=== PATIENT | male | born 1950 | race African-American/Black ===

== ENCOUNTER 2017-04-21 17:10 | Inpatient (IN) | payer OTHER ==
[2017-04-21] MEDS ORDERED: SODIUM CHLORIDE 0.9% 500 ML INFUS.BAG IV ONE (19:19)
[2017-04-21] MEDS ORDERED: FAMOTIDINE 20 MG/50 ML IVPB 50 ML IVPB ONE ×2 (19:19→20:16)
[2017-04-21] MEDS ORDERED: ACETAMINOPHEN 1000 MG/100 ML VIAL (NON FORMULARY) IVPB ONE (19:19)
--- NOTE | 2017-04-21 19:21 | PDOC ---
History of Present Illness - General History Source: Patient Exam Limitations: No Limitations - History of Present Illness Initial Comments: 04/21/17 19:22 The patient is a 67-year-old male, with a significant past medical history of hypertension, hyperlipidemia, hypothyroidism, constipation, and diabetes, who presents to the ED with one week of fever, nausea, and vomiting. The patient states that he visited his PCP today and was found to be dehydrated and had a fever. The pt was sent to the ED for further evaluation. He reports vomiting multiple times in the last few days but denies noting any blood. The pt denies any diarrhea or changes in his bowel movements (pt does taking medication for constipation). He also reports having diffuse abdominal pain and generalized weakness. He denies any body aches. He denies any chest pain or shortness of breath. He denies any recent sick contacts or recent travel. PCP: Dr. Kenny Surgical Hx: umbilical hernia repair. Social Hx: He denies any tobacco, alcohol, or drug use Allergies: None <Frank Moran - Last Filed: 04/21/17 19:51> <Brenna Ibarra - Last Filed: 04/22/17 02:06> - General Chief Complaint: Nausea/Vomiting Stated Complaint: DEHYDRATION Time Seen by Provider: 04/21/17 19:13 Past History <Frank Moran - Last Filed: 04/21/17 19:51> - Past Medical History HTN: Yes Hypercholesterolemia: Yes Thyroid Disease: Yes - Psycho/Social/Smoking Cessation Hx Anxiety: No Suicidal Ideation: No Smoking History: Never smoked Have you smoked in the past 12 months: No Information on smoking cessation initiated: No Hx Alcohol Use: No Drug/Substance Use Hx: No Substance Use Type: None <Brenna Ibarra - Last Filed: 04/22/17 02:06> - Past Medical History Allergies/Adverse Reactions: Allergies Allergy/AdvReac Type Severity Reaction Status Date / Time No Known Allergies Allergy Verified 04/21/17 18:45 Home Medications: Ambulatory Orders Amlodipine Besylate 10 mg PO DAILY 04/21/17 Levothyroxine Sodium [Synthroid] 0 mcg PO DAILY 04/21/17 Linaclotide [Linzess] 72 mcg PO DAILY 04/21/17 Simvastatin [Zocor] 10 mg PO HS 04/21/17 Review of Systems - Review of Systems Able to Perform ROS?: Yes Comments:: 04/21/17 19:34 GENERAL/CONSTITUTIONAL: (+)fever, generalized weakness, loss of appetite. No chills. HEAD, EYES, EARS, NOSE AND THROAT: No change in vision. No ear pain or discharge. No sore throat. CARDIOVASCULAR: No chest pain or shortness of breath. RESPIRATORY: No cough, wheezing, or hemoptysis. GASTROINTESTINAL:(+)abdominal pain, abdominal distension, vomiting, nausea. No diarrhea or constipation. GENITOURINARY: No dysuria, frequency, or change in urination. MUSCULOSKELETAL: No joint or muscle swelling or pain. No neck or back pain. SKIN: No rash NEUROLOGIC: No headache, vertigo, loss of consciousness, or change in strength/ sensation. ENDOCRINE: No increased thirst. No abnormal weight change. HEMATOLOGIC/LYMPHATIC: No anemia, easy bleeding, or history of blood clots. ALLERGIC/IMMUNOLOGIC: No hives or skin allergy. <Frank Moran - Last Filed: 04/21/17 19:51> *Physical Exam - Vital Signs Last Vital Signs Temp Pulse Resp BP Pulse Ox 98.7 F 108 H 18 123/77 95 04/21/17 18:59 04/21/17 18:59 04/21/17 18:59 04/21/17 18:59 04/21/17 18:59 - Physical Exam Comments: 04/21/17 19:45 GENERAL: Awake, alert, and fully oriented, in no acute distress. (+)Pt feels warm to touch. HEAD: No signs of trauma EYES: PERRLA, EOMI, sclera anicteric, conjunctiva clear ENT: (+)White tongue. Auricles normal inspection, hearing grossly normal, nares patent, oropharynx clear without exudates. Moist mucosa NECK: Normal ROM, supple, no lymphadenopathy, JVD, or masses LUNGS: (+)Decreased breathe sounds left lower long. No wheezes, and no crackles HEART: (+)Tachycardia. Normal S1 and S2, no murmurs, rubs or gallops ABDOMEN: (+)Tympanitic, rebound, abdominal distension. Soft, nontender, normoactive bowel sounds. No guarding. No masses EXTREMITIES: Normal range of motion, no edema. No clubbing or cyanosis. No cords, erythema, or tenderness NEUROLOGICAL: Cranial nerves II through XII grossly intact. SKIN: Warm, Dry, normal turgor, no rashes or lesions noted. <Frank Moran - Last Filed: 04/21/17 19:51> - Vital Signs Last Vital Signs Temp Pulse Resp BP Pulse Ox 98.7 F 108 H 18 123/77 95 04/21/17 18:59 04/21/17 18:59 04/21/17 18:59 04/21/17 18:59 04/21/17 18:59 <Brenna Ibarra - Last Filed: 04/22/17 02:06> ED Treatment Course - LABORATORY CBC & Chemistry Diagram: 04/21/17 20:00 04/21/17 20:00 - RADIOLOGY Radiology Studies Ordered: Category Date Time Status ABDOMEN & PELVIS CT W/O CONTR [CT] Stat CT Scan 04/21/17 19:18 Ordered CHEST PA & LAT [RAD] Stat Radiology 04/21/17 19:20 Ordered <Brenna Ibarra - Last Filed: 04/22/17 02:06> Medical Decision Making - Medical Decision Making 04/22/17 01:55 Pt comes with abdominal pain x 7 days and fever and chills at home. He went to PMD today who sent him to the ER. Pt has pancreatitis as per elevated lipase of 940s. CT scan reveals thickened jejunum, consistent with celiac sprue. Pt has been unable to tolerate PO at home. He has a history of constipation and is on linzess. Pt will be admitted to his PMD's partner Dr. Klein, who is aware of the patient. Pt will require GI consult while he is admitted. 04/22/17 02:05 Sono result is pending <Brenna Ibarra - Last Filed: 04/22/17 02:06> *DC/Admit/Observation/Transfer - Attestations Scribe Attestion: 04/21/17 19:49 Documentation prepared by Frank Moran, acting as medical dir for Brenna Ibarra MD. <Frank Moran - Last Filed: 04/21/17 19:51> - Discharge Dispostion Admit: Yes <Brenna Ibarra - Last Filed: 04/22/17 02:06> Diagnosis at time of Disposition: Pancreatitis, Regional enteritis of jejunum, Renal insufficiency, mild - Discharge Dispostion Condition at time of disposition: Guarded - Referrals Referrals: Theresa Kenny MD [Primary Care Provider] -
[2017-04-21] MEDS ORDERED: ACETAMINOPHEN INJECTION 100 ML IVPB ONE (20:16)
[2017-04-21 20:25] LABS: MCH 31.8 pg (25.7-33.7); MCHC 34.2 g/dl (32.0-35.9); MEAN CELL VOLUME 92.9 fl (80-96); MEAN PLT VOLUME 9.6 fl (7.5-11.1); PLATELET COUNT 179 K/MM3 (134-434); RDW 14.2 % (11.9-15.9); WHITE BLOOD COUNT 4.4 K/mm3 (4.0-10.0)
[2017-04-21 20:51] LABS: INR 1.18 (0.82-1.09)
[2017-04-21 21:00] LABS: ALBUMIN 2.2 g/dl (3.4-5.0); AMYLASE 115 U/L (25-115); ANION GAP 9 (8-16); BILIRUBIN,TOTAL 0.9 mg/dL (0.2-1.0); CALCIUM 7.8 mg/dL (8.5-10.1); CO2 25 mmol/L (21-32); CREATININE 1.5 mg/dL (0.7-1.3); GLUCOSE,RANDOM 160 mg/dL (74-106); SGOT/AST 28 U/L (15-37); SGPT/ALT 45 U/L (12-78); TOT PROT 5.4 g/dl (6.4-8.2)
[2017-04-21 21:08] LABS: ALK PHOS 53 U/L (45-117); THYROID STIMULATING HORMONE 2.21 uIU/ml (0.358-3.74)
[2017-04-21 22:41] LABS: PLATELET ESTIMATE ADEQUATE; TOTAL CELLS COUNTED 100
[2017-04-21] MEDS ORDERED: morphine CARPU-JECT 2 MG/1 ML DISP.SYRIN IVPUSH ONE (23:33)
[2017-04-21] MEDS ORDERED: morphine CARPU-JECT 2 MG/1 ML DISP.SYRIN ONE (23:49)
[2017-04-22 05:29] VITALS: BMI 26.2
[2017-04-22] MEDS ORDERED: PNEUMOC 13-VAL CONJ-DIP CRM/PF 0.5 ML DISP.SYRIN IM ONE (09:00)
[2017-04-22] MEDS: morphine CARPU-JECT 4 MG/1 ML DISP.SYRIN IVPB PRN ×2 (10:17→16:41)
[2017-04-22] MEDS: FAMOTIDINE 20 MG/50 ML IVPB 50 ML IVPB SCH ×2 (10:18→22:23)
[2017-04-22] MEDS: SODIUM CHLORIDE 1,000 ML IV SCH ×2 (10:18→22:25)
--- NOTE | 2017-04-22 13:03 | HP ---
Admitting History and Physical - Primary Care Physician PCP: Theresa Kenny - Admission Chief Complaint: Nausea vomiting for 7 days History of Present Illness: [id number] H/O hypertension,hypothyroidism, T2DM presented to clinic with 7 days H/O abd pain with nausea, vomiting and constipation, , patient was transferred to Ed w/u shows , elevated Lipase , JOSELITO, dehydration, CT abd shows Jejunitis admitted for IV Hydration , patient denies any chest pain SOB or Palpitation. today feels improved. 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 No: Darci's Disease, [place]'s Disease - Smoking History Smoking history: Never smoked Have you smoked in the past 12 months: No - Alcohol/Substance Use Hx Alcohol Use: No - Social History Usual Living Arrangement: Yes: With Spouse ADL: Independent Home Medications - Allergies Allergies/Adverse Reactions: Allergies Allergy/AdvReac Type Severity Reaction Status Date / Time No Known Allergies Allergy Verified 04/21/17 18:45 - Home Medications Home Medications: Ambulatory Orders Amlodipine Besylate 10 mg PO DAILY 04/21/17 Levothyroxine Sodium [Synthroid] 0 mcg PO DAILY 04/21/17 Linaclotide [Linzess] 72 mcg PO DAILY 04/21/17 Simvastatin [Zocor] 10 mg PO HS 04/21/17 Family Disease History - Family Disease History Family Disease History: Heart Disease: Father (HTN) Review of Systems - Review of Systems Constitutional: reports: Loss of Appetite HENT: reports: No Symptoms Neck: reports: No Symptoms Cardiovascular: reports: No Symptoms Respiratory: reports: No Symptoms Gastrointestinal: reports: Abdominal Pain, Constipation, Nausea, Vomiting Genitourinary: reports: No Symptoms Breasts: reports: No Symptoms Reported Musculoskeletal: reports: No Symptoms Integumentary: reports: No Symptoms Neurological: reports: No Symptoms Endocrine: reports: No Symptoms Hematology/Lymphatic: reports: No Symptoms Psychiatric: reports: No Symptoms Physical Examination Vital Signs: Vital Signs Temperature 98.1 F 04/22/17 05:15 Pulse Rate 114 H 04/22/17 05:15 Respiratory Rate 18 04/22/17 05:15 Blood Pressure 107/64 04/22/17 05:15 O2 Sat by Pulse Oximetry (%) 95 04/22/17 05:15 Constitutional: Yes: No Distress, Calm Eyes: Yes: Conjunctiva Clear, EOM Intact HENT: Yes: Normocephalic. No: Thrush, Tonsillar Exudate Neck: Yes: WNL, Supple, Trachea Midline, Tenderness Cardiovascular: Yes: WNL, Tachycardia, S1, S2. No: JVD Respiratory: Yes: Regular, CTA Bilaterally Gastrointestinal: Yes: Normal Bowel Sounds, Tenderness, Epigastrium, Tenderness , Rebound, Vomiting ...Rectal Exam: Yes: Deferred Renal/: No: Bladder Distention, CVA Tenderness - Left Musculoskeletal: No: Back Pain Extremities: No: Calf Tenderness Edema: No Edema: LLE: Trace, RLE: Trace Peripheral Pulses WNL: Yes Peripheral Pulses: Left Radial: 2+, Right Radial: 2+, Left Doralis Pedis: 1+, Right Dorsalis Pedis: 1+ Integumentary: Yes: WNL Neurological: Yes: WNL, Alert, Oriented. No: Facial Droop ...Motor Strength: WNL, LUE, LLE, RUE, RLE Psychiatric: Yes: WNL, Alert, Oriented. No: Agitated, Suicidal Ideation Labs: CBC,CMP WBC 4.4 K/mm3 (4.0-10.0) 04/21/17 20:00 RBC 4.20 M/mm3 (4.00-5.60) 04/21/17 20:00 Hgb 13.4 GM/dL (11.7-16.9) 04/21/17 20:00 Hct 39.1 % (35.4-49) 04/21/17 20:00 MCV 92.9 fl (80-96) 04/21/17 20:00 MCH 31.8 pg (25.7-33.7) 04/21/17 20:00 MCHC 34.2 g/dl (32.0-35.9) 04/21/17 20:00 RDW 14.2 % (11.9-15.9) 04/21/17 20:00 Plt Count 179 K/MM3 (134-434) 04/21/17 20:00 MPV 9.6 fl (7.5-11.1) 04/21/17 20:00 Neutrophils % Y 04/21/17 20:00 Neutrophils % (Manual) 40 % (42.8-82.8) L 04/21/17 20:00 Band Neuts % (Manual) 15 % (0-10) H 04/21/17 20:00 Lymphocytes % Y 04/21/17 20:00 Lymphocytes % (Manual) 33 % (8-40) 04/21/17 20:00 Monocytes % (Manual) 11 % (3.8-10.2) H 04/21/17 20:00 Eosinophils % (Manual) 1 % (0-4.5) 04/21/17 20:00 Platelet Estimate Adequate 04/21/17 20:00 Sodium 134 mmol/L (136-145) L 04/21/17 20:00 Potassium 4.3 mmol/L (3.5-5.1) 04/21/17 20:00 Chloride 100 mmol/L (98-107) 04/21/17 20:00 Carbon Dioxide 25 mmol/L (21-32) 04/21/17 20:00 Anion Gap 9 (8-16) 04/21/17 20:00 BUN 29 mg/dL (7-18) H 04/21/17 20:00 Creatinine 1.5 mg/dL (0.7-1.3) H 04/21/17 20:00 Creat Clearance w eGFR 46.68 (>60) 04/21/17 20:00 POC Glucometer 148 UNITS (()) 04/22/17 12:27 Random Glucose 160 mg/dL (74-106) H 04/21/17 20:00 Lactic Acid 1.2 mmol/L (0.4-2.0) 04/22/17 01:06 Calcium 7.8 mg/dL (8.5-10.1) L 04/21/17 20:00 Total Bilirubin 0.9 mg/dL (0.2-1.0) 04/21/17 20:00 AST 28 U/L (15-37) 04/21/17 20:00 ALT 45 U/L (12-78) 04/21/17 20:00 Alkaline Phosphatase 53 U/L (45-117) 04/21/17 20:00 Total Protein 5.4 g/dl (6.4-8.2) L 04/21/17 20:00 Albumin 2.2 g/dl (3.4-5.0) L 04/21/17 20:00 Total Amylase 115 U/L (25-115) 04/21/17 20:00 Lipase 940 U/L (73-393) H 04/21/17 20:00 TSH 2.21 uIU/ml (0.358-3.74) 04/21/17 20:00 Imaging - Results Cat Scan: Report Reviewed (SBO Jejunitis) EKG: Report Reviewed (Normal) Problem List - Problems (1) Pancreatitis Assessment/Plan: Pain improved ,F/U Lipase advance PO Code(s): K85.90 - ACUTE PANCREATITIS WITHOUT NECROSIS OR INFECTION, UNSP Qualifiers: Chronicity: acute (2) JOSELITO (acute kidney injury) Assessment/Plan: Due to dehydration F/U BMP Code(s): N17.9 - ACUTE KIDNEY FAILURE, UNSPECIFIED (3) Regional enteritis of jejunum Assessment/Plan: Can be infectios or inflamatory F/U anti Glidin AB Code(s): K50.00 - CROHN'S DISEASE OF SMALL INTESTINE WITHOUT COMPLICATIONS (4) HTN (hypertension) Assessment/Plan: Chronic Hemodynamically stable Code(s): I10 - ESSENTIAL (PRIMARY) HYPERTENSION (5) SBO (small bowel obstruction) Assessment/Plan: Partial SBO due to ILeus F/IU Clinically Code(s): K56.69 - OTHER INTESTINAL OBSTRUCTION (6) Nausea & vomiting Assessment/Plan: Due to acute Pancreatitis Code(s): R11.2 - NAUSEA WITH VOMITING, UNSPECIFIED (7) T2DM (type 2 diabetes mellitus) Assessment/Plan: F/U accucheck and correction dose Insulin Code(s): E11.9 - TYPE 2 DIABETES MELLITUS WITHOUT COMPLICATIONS Assessment/Plan Active Medications Generic Name Dose Route Start Last Admin Trade Name Freq PRN Reason Stop Dose Admin Famotidine/Sodium Chloride 50 mls @ 100 mls/hr 04/22/17 10:00 04/22/17 10:18 Pepcid 20 Mg Premixed Ivpb - IVPB 100 mls/hr BID ZACH Administration Sodium Chloride 1,000 mls @ 75 mls/hr 04/22/17 10:00 04/22/17 10:18 Normal Saline - IV 75 mls/hr ASDIR ZACH Administration Morphine Sulfate 2 mg 04/22/17 09:45 04/22/17 10:17 Morphine Injection - IVPB 2 mg Q6H PRN Administration Ondansetron HCl 4 mg 04/22/17 09:45 Zofran Injection IVPB Q6H PRN NAUSEA AND/OR VOMITING
[2017-04-22] MEDS: INSULIN SLIDING SCALE (NOVOLOG) 1 VIAL SQ SCH (16:49)
--- NOTE | 2017-04-22 18:39 | EKG ---
Test Reason : Blood Pressure : / mmHG Vent. Rate : 112 BPM Atrial Rate : 112 BPM P-R Int : 130 ms QRS Dur : 084 ms QT Int : 304 ms P-R-T Axes : 062 022 045 degrees QTc Int : 414 ms SINUS TACHYCARDIA POSSIBLE LEFT ATRIAL ENLARGEMENT NONSPECIFIC T WAVE ABNORMALITY ABNORMAL ECG WHEN COMPARED WITH ECG OF 07-JAN-2000 10:04, ST NO LONGER ELEVATED IN ANTERIOR LEADS NONSPECIFIC T WAVE ABNORMALITY NOW EVIDENT IN ANTERIOR LEADS Confirmed by SHAISTA METZ MD ([id number]) on 04/22/2017 6:38:56 PM Referred By: Confirmed By:SHAISTA METZ MD
[2017-04-22] MEDS: ACETAMINOPHEN 325 MG TABLET (FP) PO PRN (22:24)
[2017-04-22] MEDS: morphine CARPU-JECT 4 MG/1 ML DISP.SYRIN IVPUSH PRN (22:24)
[2017-04-23] MEDS: morphine CARPU-JECT 4 MG/1 ML DISP.SYRIN IVPUSH PRN ×3 (04:40→18:59)
[2017-04-23] MEDS: INSULIN SLIDING SCALE (NOVOLOG) 1 VIAL SQ SCH ×3 (06:51→16:21)
[2017-04-23 07:22] LABS: MCHC 34.1 g/dl (32.0-35.9); MEAN CELL VOLUME 93.9 fl (80-96); MEAN PLT VOLUME 9.3 fl (7.5-11.1); PLATELET COUNT 222 K/MM3 (134-434); RDW 14.9 % (11.9-15.9); WHITE BLOOD COUNT 6.4 K/mm3 (4.0-10.0)
[2017-04-23 08:00] LABS: ALBUMIN 1.7 g/dl (3.4-5.0); ANION GAP 9 (8-16); CO2 23 mmol/L (21-32); CREATININE 1.2 mg/dL (0.7-1.3); GLUCOSE,RANDOM 136 mg/dL (74-106); SGOT/AST 56 U/L (15-37); SGPT/ALT 66 U/L (12-78); TOT PROT 4.6 g/dl (6.4-8.2)
[2017-04-23 08:10] LABS: ALK PHOS 79 U/L (45-117); THYROID STIMULATING HORMONE 3.92 uIU/ml (0.358-3.74)
--- NOTE | 2017-04-23 08:31 | PN ---
Progress Note, Physician Chief Complaint: C/O worsening abdominal pain and distention BM this morning no vomiting c/o nausea History of Present Illness: 67 yrs old man admitted with nausea, vomiting diarrhea, CT shows acute pancreatitis - Current Medication List Current Medications: Active Medications Acetaminophen (Tylenol -) 650 mg PO Q6H PRN PRN Reason: FEVER OR PAIN Last Admin: 04/22/17 22:24 Dose: 650 mg Famotidine/Sodium Chloride (Pepcid 20 Mg Premixed Ivpb -) 50 mls @ 100 mls/hr IVPB BID ZACH Last Admin: 04/22/17 22:23 Dose: 100 mls/hr Sodium Chloride (Normal Saline -) 1,000 mls @ 75 mls/hr IV ASDIR ZACH Last Admin: 04/22/17 22:25 Dose: 75 mls/hr Insulin Aspart (Novolog Vial Sliding Scale -) 1 vial SQ TIDAC ZACH PRN Reason: Protocol Last Admin: 04/23/17 06:51 Dose: Not Given Morphine Sulfate (Morphine Injection -) 4 mg IVPUSH Q6H PRN Last Admin: 04/23/17 04:40 Dose: 4 mg Ondansetron HCl (Zofran Injection) 4 mg IVPB Q6H PRN PRN Reason: NAUSEA AND/OR VOMITING - Objective Vital Signs: Vital Signs Temperature 98.9 F 04/23/17 06:00 Pulse Rate 95 H 04/23/17 06:00 Respiratory Rate 17 04/23/17 06:00 Blood Pressure 97/59 04/23/17 06:00 O2 Sat by Pulse Oximetry (%) 95 04/22/17 21:00 Elderly man looks un comfortable not in distress HEENT: mm moist no anemia, PERRLA EOMI NECK: No JVD No Bruit CHEST: CTA B/L CVS; S1S2 R mo m/g/r ABD: + distention , ++epigastric tenderness No rebound Bs + EXT: No edema fwwt, no calf tenderness 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: 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 non focal Labs: CBC, BMP 04/23/17 06:30 04/23/17 06:30 INR, PTT INR 1.18 (0.82-1.09) H 04/21/17 20:00 CBC,CMP WBC 6.4 K/mm3 (4.0-10.0) D 04/23/17 06:30 RBC 3.80 M/mm3 (4.00-5.60) L 04/23/17 06:30 Hgb 12.1 GM/dL (11.7-16.9) 04/23/17 06:30 Hct 35.6 % (35.4-49) 04/23/17 06:30 MCV 93.9 fl (80-96) 04/23/17 06:30 MCH 32.0 pg (25.7-33.7) 04/23/17 06:30 MCHC 34.1 g/dl (32.0-35.9) 04/23/17 06:30 RDW 14.9 % (11.9-15.9) 04/23/17 06:30 Plt Count 222 K/MM3 (134-434) D 04/23/17 06:30 MPV 9.3 fl (7.5-11.1) 04/23/17 06:30 Neutrophils % Y 04/23/17 06:30 Neutrophils % (Manual) 40 % (42.8-82.8) L 04/21/17 20:00 Band Neuts % (Manual) 15 % (0-10) H 04/21/17 20:00 Lymphocytes % Y 04/23/17 06:30 Lymphocytes % (Manual) 33 % (8-40) 04/21/17 20:00 Monocytes % (Manual) 11 % (3.8-10.2) H 04/21/17 20:00 Eosinophils % (Manual) 1 % (0-4.5) 04/21/17 20:00 Platelet Estimate Adequate 04/21/17 20:00 Sodium 135 mmol/L (136-145) L 04/23/17 06:30 Potassium 3.8 mmol/L (3.5-5.1) 04/23/17 06:30 Chloride 103 mmol/L (98-107) 04/23/17 06:30 Carbon Dioxide 23 mmol/L (21-32) 04/23/17 06:30 Anion Gap 9 (8-16) 04/23/17 06:30 BUN 17 mg/dL (7-18) D 04/23/17 06:30 Creatinine 1.2 mg/dL (0.7-1.3) 04/23/17 06:30 Creat Clearance w eGFR > 60 (>60) 04/23/17 06:30 POC Glucometer 125 UNITS (()) 04/23/17 06:21 Random Glucose 136 mg/dL (74-106) H 04/23/17 06:30 Lactic Acid 1.2 mmol/L (0.4-2.0) 04/22/17 01:06 Calcium 7.0 mg/dL (8.5-10.1) L 04/23/17 06:30 Magnesium 2.2 mg/dL (1.8-2.4) 04/22/17 14:45 Total Bilirubin 1.0 mg/dL (0.2-1.0) 04/23/17 06:30 AST 56 U/L (15-37) H D 04/23/17 06:30 ALT 66 U/L (12-78) D 04/23/17 06:30 Alkaline Phosphatase 79 U/L (45-117) D 04/23/17 06:30 Total Protein 4.6 g/dl (6.4-8.2) L 04/23/17 06:30 Albumin 1.7 g/dl (3.4-5.0) L D 04/23/17 06:30 Total Amylase 115 U/L (25-115) 04/21/17 20:00 Lipase 2543 U/L (73-393) H 04/23/17 06:30 TSH 3.92 uIU/ml (0.358-3.74) H D 04/23/17 06:30 Problem List - Problems (1) Pancreatitis Assessment/Plan: Recurrence of pain with rising Lipase F/U serial Lipse GI consult increse Pain meds NPO Code(s): K85.90 - ACUTE PANCREATITIS WITHOUT NECROSIS OR INFECTION, UNSP Qualifiers: Chronicity: acute (2) JOSELITO (acute kidney injury) Assessment/Plan: Due to dehydration F/U BMP Code(s): N17.9 - ACUTE KIDNEY FAILURE, UNSPECIFIED (3) Regional enteritis of jejunum Assessment/Plan: Can be infectios or inflamatory F/U anti Glidin AB Code(s): K50.00 - CROHN'S DISEASE OF SMALL INTESTINE WITHOUT COMPLICATIONS (4) HTN (hypertension) Assessment/Plan: Chronic Hemodynamically stable Code(s): I10 - ESSENTIAL (PRIMARY) HYPERTENSION (5) SBO (small bowel obstruction) Assessment/Plan: Partial SBO due to ILeus developed distention F/U KUB, NG tube surgery consult Code(s): K56.69 - OTHER INTESTINAL OBSTRUCTION (6) Nausea & vomiting Assessment/Plan: Due to acute Pancreatitis Code(s): R11.2 - NAUSEA WITH VOMITING, UNSPECIFIED (7) T2DM (type 2 diabetes mellitus) Assessment/Plan: F/U accucheck and correction dose Insulin Code(s): E11.9 - TYPE 2 DIABETES MELLITUS WITHOUT COMPLICATIONS Assessment/Plan Active Medications Generic Name Dose Route Start Last Admin Trade Name Freq PRN Reason Stop Dose Admin Famotidine/Sodium Chloride 50 mls @ 100 mls/hr 04/22/17 10:00 04/22/17 10:18 Pepcid 20 Mg Premixed Ivpb - IVPB 100 mls/hr BID ZACH Administration Sodium Chloride 1,000 mls @ 75 mls/hr 04/22/17 10:00 04/22/17 10:18 Normal Saline - IV 75 mls/hr ASDIR ZACH Administration Morphine Sulfate 2 mg 04/22/17 09:45 04/22/17 10:17 Morphine Injection - IVPB 2 mg Q6H PRN Administration Ondansetron HCl 4 mg 04/22/17 09:45 Zofran Injection IVPB Q6H PRN NAUSEA AND/OR VOMITING
[2017-04-23 08:41] LABS: TOTAL CELLS COUNTED 100
[2017-04-23 08:42] LABS: METAMYELOCYTE 4 % (0-2); PLATELET ESTIMATE ADEQUATE
[2017-04-23] MEDS: FAMOTIDINE 20 MG/50 ML IVPB 50 ML IVPB SCH ×2 (09:15→22:57)
[2017-04-23] MEDS: ACETAMINOPHEN 325 MG TABLET (FP) PO PRN (09:19)
[2017-04-23] MEDS ORDERED: PATIENT'S OWN MEDICATION (NON-FORMULARY) (Linaclotide [Linzess] 72 MCG) PO SCH (10:00)
[2017-04-23] MEDS: LEVOTHYROXINE NA 25 MCG TABLET (FP) PO SCH (11:53)
[2017-04-23 12:02] LABS: CHOLESTEROL 106 mg/dL (50-200); LDL CHOLESTEROL (ONLY SJRH) 47 mg/dL (5-100)
--- NOTE | 2017-04-23 13:26 | CONSULT ---
Consult Consult Specialty:: Surgery Referred by:: Birgit Klein Reason for Consultation:: Abdominal pain , pancreatitis. - History of Present Illness Chief Complaint: C/O Abdoominal pain , periumbilical for one week, associated with vomiting, and nausea. Denies having any abdominal surgery. History of Present Illness: C/ O having started with abdominal pain about a week ago,, associated with vomiting. c/O having chronic constipation . Last bowel movement was this a.m. Denies any alcohol abuse, and drug abuse. He has not had similar pain in the past. He has had a colonoscopy about 5 years ago. 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 No: [place]'s Disease, [place]'s Disease - Alcohol/Substance Use Hx Alcohol Use: No - Smoking History Smoking history: Never smoked Have you smoked in the past 12 months: No - Social History ADL: Independent Home Medications - Allergies Allergies/Adverse Reactions: Allergies Allergy/AdvReac Type Severity Reaction Status Date / Time No Known Allergies Allergy Verified 04/21/17 18:45 - Home Medications Home Medications: Ambulatory Orders Amlodipine Besylate 10 mg PO DAILY 04/21/17 Levothyroxine Sodium [Synthroid] 0 mcg PO DAILY 04/21/17 Linaclotide [Linzess] 72 mcg PO DAILY 04/21/17 Simvastatin [Zocor] 10 mg PO HS 04/21/17 Family Disease History - Family Disease History Family Disease History: Heart Disease: Father (HTN) Physical Exam Vital Signs: Vital Signs Temperature 98.9 F 04/23/17 06:00 Pulse Rate 95 H 04/23/17 06:00 Respiratory Rate 04/23/17 06:00 Blood Pressure 97/59 04/23/17 06:00 O2 Sat by Pulse Oximetry (%) 95 04/22/17 21:00 Gastrointestinal: Yes: Normal Bowel Sounds, Soft, Other (He is not tender, and there is no palpable mass.) Labs: CBC, BMP 04/23/17 06:30 04/23/17 06:30 Imaging - Results Cat Scan: Report Reviewed Ultrasound: Report Reviewed Problem List - Problems (1) Abdominal pain Code(s): R10.9 - UNSPECIFIED ABDOMINAL PAIN Qualifiers: Abdominal location: periumbilical Qualified Code(s): R10.33 - Periumbilical pain (2) Vomiting Code(s): R11.10 - VOMITING, UNSPECIFIED Qualifiers: Vomiting type: unspecified (3) Elevated lipase Code(s): R74.8 - ABNORMAL LEVELS OF OTHER SERUM ENZYMES (4) Pancreatitis Code(s): K85.90 - ACUTE PANCREATITIS WITHOUT NECROSIS OR INFECTION, UNSP Qualifiers: Chronicity: acute (5) SBO (small bowel obstruction) Code(s): K56.69 - OTHER INTESTINAL OBSTRUCTION (6) HTN (hypertension) Code(s): I10 - ESSENTIAL (PRIMARY) HYPERTENSION (7) T2DM (type 2 diabetes mellitus) Code(s): E11.9 - TYPE 2 DIABETES MELLITUS WITHOUT COMPLICATIONS Assessment/Plan Abdominal pain , with elevated lipase. ? Acute pancreatitis secondary to passage of a solitary biliary calculus. Enlarged liver 20 cm, ? etiology. No sign of intestinal obstruction , patient has had a large bowel movement in the hospital and witnessed by the nurse. G.I. consultation. NG tube is placed with minimal drainage. hydrate. Will follow.
--- NOTE | 2017-04-23 16:33 | PN ---
Progress Note (short form) - Note Progress Note: GI CONSULTATION: PLEASE SEE THE COMPLETE DICTATION IN BRIEF: 67M WITH HTN/DM/THYROID DISEASE S/P APPENDECOTMY AND UMBILICAL HERNIA REPAIR ADMIT WITH PARTIAL SBO WITH INFLAMM CHANGES AT JEJENUM AND DILATED BOWEL MUCH IMPROVED AFTER NGT PLACEMENT WITH LESS DISTENTION/LESS PAIN/ RESOLUTION OF VOMITING SUSPECT LIPASE REFLECTS ACUTE ABDOMINAL PROCESS AND NOT PANCREATITIS BASED UPON PRESENTATION AND CT FINDINGS-----WOULD CONTINUE CURRENT RX OF PARTIAL SBO IVF/PAIN MEDS/NPO/ NGT DECOMPRESSION F/U FUA/CBC/SURGICAL EVAL. NON-TOXIC EXAM AT THIS TIME THANKS, MD ABDIRIZAK
[2017-04-23] MEDS: SODIUM CHLORIDE 1,000 ML IV SCH (16:39)
[2017-04-23] MEDS: ONDANSETRON 4 MG/2 ML VIAL IVPB PRN (21:46)
[2017-04-23] MEDS: ATORVASTATIN CA 10 MG TABLET (FP) PO SCH (22:56)
[2017-04-24] MEDS: morphine CARPU-JECT 4 MG/1 ML DISP.SYRIN IVPUSH PRN (00:32)
[2017-04-24] MEDS: morphine CARPU-JECT 2 MG/1 ML DISP.SYRIN IVPUSH PRN ×4 (00:35→17:55)
[2017-04-24] MEDS: INSULIN SLIDING SCALE (NOVOLOG) 1 VIAL SQ SCH ×3 (06:13→17:07)
[2017-04-24] MEDS: SODIUM CHLORIDE 1,000 ML IV SCH ×2 (06:48→11:53)
[2017-04-24] MEDS: LEVOTHYROXINE NA 25 MCG TABLET (FP) PO SCH (07:09)
[2017-04-24 08:18] LABS: MCHC 34.3 g/dl (32.0-35.9); MEAN CELL VOLUME 93.4 fl (80-96); MEAN PLT VOLUME 9.2 fl (7.5-11.1); PLATELET COUNT 255 K/MM3 (134-434); RDW 15.2 % (11.9-15.9); WHITE BLOOD COUNT 6.9 K/mm3 (4.0-10.0)
--- NOTE | 2017-04-24 08:37 | PN ---
Progress Note, Physician Chief Complaint: yesterday C/O worsening abdominal pain and distention BM this morning no vomiting c/o nausea, NG tube inserted feels improved, GI and Surgery input precited History of Present Illness: 67 yrs old man admitted with nausea, vomiting diarrhea, CT shows acute pancreatitis - Current Medication List Current Medications: Active Medications Acetaminophen (Tylenol -) 650 mg PO Q6H PRN PRN Reason: FEVER OR PAIN Last Admin: 04/23/17 09:19 Dose: 650 mg Atorvastatin Calcium (Lipitor -) 10 mg PO HS [facility] Last Admin: 04/23/17 22:56 Dose: Not Given Famotidine/Sodium Chloride (Pepcid 20 Mg Premixed Ivpb -) 50 mls @ 100 mls/hr IVPB BID [facility] Last Admin: 04/23/17 22:57 Dose: 100 mls/hr Sodium Chloride (Normal Saline -) 1,000 mls @ 75 mls/hr IV ASDIR [facility] Last Admin: 04/24/17 06:48 Dose: 75 mls/hr Insulin Aspart (Novolog Vial Sliding Scale -) 1 vial SQ TIDAC [facility] PRN Reason: Protocol Last Admin: 04/24/17 06:13 Dose: Not Given Levothyroxine Sodium (Synthroid -) 25 mcg PO DAILY@0700 [facility] Last Admin: 04/24/17 07:09 Dose: Not Given Morphine Sulfate (Morphine Injection -) 4 mg IVPUSH Q6H PRN Last Admin: 04/24/17 06:40 Dose: 4 mg Ondansetron HCl (Zofran Injection) 4 mg IVPB Q6H PRN PRN Reason: NAUSEA AND/OR VOMITING Last Admin: 04/23/17 21:46 Dose: 4 mg - Objective Vital Signs: Vital Signs Temperature 98.7 F 04/24/17 06:55 Pulse Rate 94 H 04/24/17 06:55 Respiratory Rate 20 04/24/17 06:55 Blood Pressure 137/77 04/24/17 06:55 O2 Sat by Pulse Oximetry (%) 95 04/23/17 21:00 Elderly man looks un comfortable not in distress HEENT: NG tube t plcemm moist no anemia, PERRLA EOMI NECK: No JVD No Bruit CHEST: CTA B/L CVS; S1S2 R mo m/g/r ABD: + distention , ++epigastric tenderness No rebound Bs + EXT: No edema fwwt, no calf tenderness [employer]BER: AOx3 non focal Labs: CBC, BMP 04/24/17 06:00 INR, PTT INR 1.18 (0.82-1.09) H 04/21/17 20:00 Problem List - Problems (1) Pancreatitis Assessment/Plan: Recurrence of pain with rF/U Lipase level Code(s): K85.90 - ACUTE PANCREATITIS WITHOUT NECROSIS OR INFECTION, UNSP Qualifiers: Chronicity: acute (2) JOSELITO (acute kidney injury) Assessment/Plan: Improved Due to dehydration F/U BMP Code(s): N17.9 - ACUTE KIDNEY FAILURE, UNSPECIFIED (3) Regional enteritis of jejunum Assessment/Plan: F/y U GI and surgery recommonations Code(s): K50.00 - CROHN'S DISEASE OF SMALL INTESTINE WITHOUT COMPLICATIONS (4) HTN (hypertension) Assessment/Plan: Chronic Hemodynamically stable Code(s): I10 - ESSENTIAL (PRIMARY) HYPERTENSION (5) SBO (small bowel obstruction) Assessment/Plan: Partial SBO due to ILeus developed distention F/U KUB, NG tube surgery consult Code(s): K56.69 - OTHER INTESTINAL OBSTRUCTION (6) Nausea & vomiting Assessment/Plan: Due to acute Pancreatitis Code(s): R11.2 - NAUSEA WITH VOMITING, UNSPECIFIED (7) T2DM (type 2 diabetes mellitus) Code(s): E11.9 - TYPE 2 DIABETES MELLITUS WITHOUT COMPLICATIONS
[2017-04-24 09:06] LABS: ALBUMIN 1.7 g/dl (3.4-5.0); ALK PHOS 89 U/L (45-117); ANION GAP 11 (8-16); BILIRUBIN,TOTAL 0.9 mg/dL (0.2-1.0); CALCIUM 7.3 mg/dL (8.5-10.1); CO2 23 mmol/L (21-32); GLUCOSE,RANDOM 114 mg/dL (74-106); METAMYELOCYTE 2 % (0-2); MYELOCYTE 1 % (0-2); SGOT/AST 38 U/L (15-37); SGPT/ALT 73 U/L (12-78); TOT PROT 4.8 g/dl (6.4-8.2); TOTAL CELLS COUNTED 100
[2017-04-24 09:07] LABS: PLATELET ESTIMATE ADEQUATE
[2017-04-24 09:11] LABS: AMYLASE 159 U/L (25-115)
[2017-04-24] MEDS: FAMOTIDINE 20 MG/50 ML IVPB 50 ML IVPB SCH ×2 (09:40→22:17)
--- NOTE | 2017-04-24 12:04 | CONS ---
DATE OF CONSULTATION: 04/23/2017 HISTORY: I was asked by Dr. Genao to evaluate this patient for abdominal pain, vomiting, and small bowel obstruction. The patient is a 67-year-old gentleman from [place] who tells me that he has a past medical history of hypertension, hyperlipidemia, hypothyroidism, diabetes who reports that he has been constipated over the past week or so. He went to his doctor and took a laxative, but he was not having bowel movements. His abdomen became distended, and he had a pain and a fever, and he was sent to the emergency room for further evaluation. He had vomiting a few times the last few days but did not see any blood. He denied any diarrhea or any bowel movements. He has had issues with constipation over time. He tells me he had a colonoscopy with Dr. Ramos a few years ago that he believes is normal. The patient has no other history of gastrointestinal disease except that he had an umbilical hernia repair and an appendectomy in the past. Apparently, his medical doctor is Dr. Kenny. The patient tells me that he does not smoke, drink, or use any drugs. Has no known drug allergies. He has no known history of any gallstones, and he was not drinking alcohol recently. The patient tells me when he came to the hospital an NG tube was placed. It decompressed his belly a bit and feels much, much improved. Currently, he tells me that he had moved his bowels today, and he is started to feel a lot better. The patient does not feels hungry. He had no recent loss of appetite prior to the onset of this about 7-10 days ago. MEDICATIONS: Medications at home include Linzess, Zocor, Synthroid, amlodipine. The patient currently in the hospital in terms of medications is receiving Zofran, Tylenol, IV fluid, Pepcid, Lipitor, NovoLog, morphine, and Synthroid. PHYSICAL EXAMINATION: Vital Signs: Stable. His temperature is 100.8. On admission, his temperature was 100.6 then during the day it has been 98. Most recent it is 100.8. He is not tachycardic. His blood pressure is 120/69. General: He appears to be in minimal distress. HEENT: He has an NG tube draining about 80 mL of enteric contents. There is no blood. Sclerae anicteric. Neck: Supple. Abdomen: Mildly distended. Some bowel sounds are heard. There is minimal tenderness to deep palpation, but there is some tenderness. There are no masses, rebound, or guarding. LABORATORY DATA: Reveals a sodium 135, potassium 3.8, chloride 103, bicarbonate 23, BUN 17, creatinine 1.2. He has got a calcium 7, total bilirubin 1, AST 56, alert 66, alkaline phosphatase 69, albumin 1.7. Triglycerides 122, lipase 2500, TSH 3.9. His white count is 6.4 with an hemoglobin 12.1, hematocrit 35.6, MCV 94, 222,000 platelets. His coagulation studies are normal. He had a CT scan of the abdomen and pelvis that was performed on admission. He was noted to have distended, thickened loops of proximal jejunum in the left upper quadrant consistent with an obstruction thought to be due to either a hernia or a postoperative adhesion. He also has BPH. There are no other significant findings in the abdomen. It is noted that the spleen, pancreas, adrenals, kidneys, liver appear unremarkable. The gallbladder is contracted without stones. IMPRESSION: The patient is a 67-year-old gentleman with hypertension and diabetes who presents with evidence of bowel obstruction. It appears at this point it is a partial small bowel obstruction, and he appears clinically and biochemically improved after the placement of an NG tube. I am hoping that with supportive care, IV fluid, and the NG tube this should open up on its own. He has had prior appendectomy and umbilical hernia repair, and I question an adhesive band. At the present time, I suspect the lipase is coming from the bowel and not from the pancreas as the pancreas appears perfectly normally radiographically. Regardless, the management initially is the same. Again, I would recommend following up in [facility] and close surgical follow up and repeating the CBC. We will continue to be available to aid in the management of this patient. DENNISE REVELES M.D. CORDELIA/[id number]
--- NOTE | 2017-04-24 13:01 | PN ---
GI Progress Note Subjective: No acute events Still receiving IV analgesia 200cc NGT drainage from this morning + BM yesterday - Objective Vital Signs: Vital Signs Temperature 98.1 F 04/24/17 09:00 Pulse Rate 95 H 04/24/17 09:00 Respiratory Rate 16 04/24/17 09:00 Blood Pressure 148/82 04/24/17 09:00 O2 Sat by Pulse Oximetry (%) 96 04/24/17 09:00 Constitutional: Calm Eyes: No: Sclera Icterus Cardiovascular: Yes: Regular Rate and Rhythm Respiratory: Yes: CTA Bilaterally Gastrointestinal Inspection: No: Distention ...Auscultate: Yes: Normoactive Bowel Sounds ...Palpate: Yes: Tenderness (Mild TTP mid abdomen and diffusely) ...Percussion: No: Tympanitic Edema: No (No LE edema) Neurological: Yes: Alert, Oriented Labs: CBC, BMP 04/24/17 06:00 04/24/17 06:00 INR, PTT INR 1.18 (0.82-1.09) H 04/21/17 20:00 Hepatic Panel Total Bilirubin 0.9 mg/dL (0.2-1.0) 04/24/17 06:00 AST 38 U/L (15-37) H D 04/24/17 06:00 ALT 73 U/L (12-78) 04/24/17 06:00 Alkaline Phosphatase 89 U/L (45-117) 04/24/17 06:00 Albumin 1.7 g/dl (3.4-5.0) L 04/24/17 06:00 - ....Imaging Cat Scan: Report Reviewed, Image Reviewed (No acute pancreatitis changes, Thickened jejunal loops) Problem List - Problems (1) Abdominal pain Assessment/Plan: Agree w/ Dr. Becerra that an alternate diagnosis aside from acute pancreatitis would need to be considered given inflammatory changes noted along the jejunal loops with elevated lipase reflecting intraabdominal process. ? enteritis / PSBO. Continue NGT decompression for now with surgery follow-up Code(s): R10.9 - UNSPECIFIED ABDOMINAL PAIN Qualifiers: Abdominal location: periumbilical Qualified Code(s): R10.33 - Periumbilical pain
--- NOTE | 2017-04-24 16:42 | PN ---
Progress Note, Physician - Current Medication List Current Medications: Active Medications Acetaminophen (Tylenol -) 650 mg PO Q6H PRN PRN Reason: FEVER OR PAIN Last Admin: 04/23/17 09:19 Dose: 650 mg Atorvastatin Calcium (Lipitor -) 10 mg PO HS [facility] Last Admin: 04/23/17 22:56 Dose: Not Given Famotidine/Sodium Chloride (Pepcid 20 Mg Premixed Ivpb -) 50 mls @ 100 mls/hr IVPB BID [facility] Last Admin: 04/24/17 09:40 Dose: 100 mls/hr Sodium Chloride (Normal Saline -) 1,000 mls @ 75 mls/hr IV ASDIR [facility] Last Admin: 04/24/17 11:53 Dose: Not Given Insulin Aspart (Novolog Vial Sliding Scale -) 1 vial SQ TIDAC [facility] PRN Reason: Protocol Last Admin: 04/24/17 11:22 Dose: Not Given Levothyroxine Sodium (Synthroid -) 25 mcg PO DAILY@0700 [facility] Last Admin: 04/24/17 07:09 Dose: Not Given Morphine Sulfate (Morphine Injection -) 4 mg IVPUSH Q6H PRN Last Admin: 04/24/17 11:51 Dose: 4 mg Ondansetron HCl (Zofran Injection) 4 mg IVPB Q6H PRN PRN Reason: NAUSEA AND/OR VOMITING Last Admin: 04/23/17 21:46 Dose: 4 mg - Objective Vital Signs: Vital Signs Temperature 98.0 F 04/24/17 14:34 Pulse Rate 98 H 04/24/17 14:34 Respiratory Rate 16 04/24/17 14:34 Blood Pressure 130/72 04/24/17 14:34 O2 Sat by Pulse Oximetry (%) 96 04/24/17 09:00 Labs: CBC, BMP 04/24/17 06:00 04/24/17 06:00 INR, PTT INR 1.18 (0.82-1.09) H 04/21/17 20:00 Problem List - Problems (1) Abdominal pain Code(s): R10.9 - UNSPECIFIED ABDOMINAL PAIN Qualifiers: Abdominal location: periumbilical Qualified Code(s): R10.33 - Periumbilical pain (2) Vomiting Code(s): R11.10 - VOMITING, UNSPECIFIED Qualifiers: Vomiting type: unspecified (3) Elevated lipase Code(s): R74.8 - ABNORMAL LEVELS OF OTHER SERUM ENZYMES (4) Pancreatitis Code(s): K85.90 - ACUTE PANCREATITIS WITHOUT NECROSIS OR INFECTION, UNSP Qualifiers: Chronicity: acute (5) SBO (small bowel obstruction) Code(s): K56.69 - OTHER INTESTINAL OBSTRUCTION (6) HTN (hypertension) Code(s): I10 - ESSENTIAL (PRIMARY) HYPERTENSION (7) T2DM (type 2 diabetes mellitus) Code(s): E11.9 - TYPE 2 DIABETES MELLITUS WITHOUT COMPLICATIONS Assessment/Plan Patient is comfortable, abdomen is soft, Has had no bowel movement. Lipase is elevated. No intestinal obstruction. Abdominal Xray: Only one loop of small bowel against the pancreas is dilated, there is no air, in any other loops of small bowel. . Air is seen throughout the large intestine. This is suggestive of ilius of the bowel next to the pancreas. CBC , Lfts and chemistry is normal. Continue current management. Acute pancreatitis, ? etiology. Continue IV fluids, monitor lipse.
[2017-04-24] MEDS: ONDANSETRON 4 MG/2 ML VIAL IVPB PRN (17:05)
[2017-04-24] MEDS: ATORVASTATIN CA 10 MG TABLET (FP) PO SCH (22:17)
[2017-04-25] MEDS: morphine CARPU-JECT 2 MG/1 ML DISP.SYRIN IVPUSH PRN ×4 (00:12→19:12)
[2017-04-25] MEDS: LEVOTHYROXINE NA 25 MCG TABLET (FP) PO SCH (06:18)
[2017-04-25] MEDS: INSULIN SLIDING SCALE (NOVOLOG) 1 VIAL SQ SCH ×3 (06:21→17:18)
[2017-04-25 07:57] LABS: MCH 31.4 pg (25.7-33.7); MCHC 33.5 g/dl (32.0-35.9); MEAN CELL VOLUME 93.7 fl (80-96); MEAN PLT VOLUME 8.7 fl (7.5-11.1); PLATELET COUNT 255 K/MM3 (134-434); RDW 14.9 % (11.9-15.9); WHITE BLOOD COUNT 6.1 K/mm3 (4.0-10.0)
[2017-04-25 08:25] LABS: MCH 31.6 pg (25.7-33.7); MCHC 33.7 g/dl (32.0-35.9); MEAN CELL VOLUME 93.6 fl (80-96); MEAN PLT VOLUME 8.8 fl (7.5-11.1); PLATELET COUNT 253 K/MM3 (134-434); RDW 15.3 % (11.9-15.9)
[2017-04-25 08:33] LABS: ALBUMIN 1.5 g/dl (3.4-5.0); ANION GAP 14 (8-16); CALCIUM 7.2 mg/dL (8.5-10.1); CO2 22 mmol/L (21-32); GLUCOSE,RANDOM 126 mg/dL (74-106); SGOT/AST 29 U/L (15-37); SGPT/ALT 55 U/L (12-78)
[2017-04-25 08:36] LABS: ALK PHOS 95 U/L (45-117); TOT PROT 4.3 g/dl (6.4-8.2)
--- NOTE | 2017-04-25 08:39 | PN ---
Progress Note, Physician - Current Medication List Current Medications: Active Medications Acetaminophen (Tylenol -) 650 mg PO Q6H PRN PRN Reason: FEVER OR PAIN Last Admin: 04/23/17 09:19 Dose: 650 mg Atorvastatin Calcium (Lipitor -) 10 mg PO HS [facility] Last Admin: 04/24/17 22:17 Dose: 10 mg Famotidine/Sodium Chloride (Pepcid 20 Mg Premixed Ivpb -) 50 mls @ 100 mls/hr IVPB BID [facility] Last Admin: 04/24/17 22:17 Dose: 100 mls/hr Sodium Chloride (Normal Saline -) 1,000 mls @ 75 mls/hr IV ASDIR [facility] Last Admin: 04/24/17 11:53 Dose: Not Given Insulin Aspart (Novolog Vial Sliding Scale -) 1 vial SQ TIDAC [facility] PRN Reason: Protocol Last Admin: 04/25/17 06:21 Dose: Not Given Levothyroxine Sodium (Synthroid -) 25 mcg PO DAILY@0700 [facility] Last Admin: 04/25/17 06:18 Dose: Not Given Morphine Sulfate (Morphine Injection -) 4 mg IVPUSH Q6H PRN Last Admin: 04/25/17 06:42 Dose: 4 mg Ondansetron HCl (Zofran Injection) 4 mg IVPB Q6H PRN PRN Reason: NAUSEA AND/OR VOMITING Last Admin: 04/24/17 17:05 Dose: 4 mg - Objective Vital Signs: Vital Signs Temperature 99.9 F H 04/25/17 06:00 Pulse Rate 107 H 04/25/17 06:00 Respiratory Rate 20 04/25/17 06:00 Blood Pressure 138/77 04/25/17 06:00 O2 Sat by Pulse Oximetry (%) 96 04/24/17 21:00 Constitutional: Yes: Mild Distress Labs: CBC, BMP 04/25/17 06:00 INR, PTT INR 1.18 (0.82-1.09) H 04/21/17 20:00 Problem List - Problems (1) Abdominal pain Code(s): R10.9 - UNSPECIFIED ABDOMINAL PAIN Qualifiers: Abdominal location: periumbilical Qualified Code(s): R10.33 - Periumbilical pain (2) Vomiting Code(s): R11.10 - VOMITING, UNSPECIFIED Qualifiers: Vomiting type: unspecified (3) Elevated lipase Code(s): R74.8 - ABNORMAL LEVELS OF OTHER SERUM ENZYMES (4) Pancreatitis Code(s): K85.90 - ACUTE PANCREATITIS WITHOUT NECROSIS OR INFECTION, UNSP Qualifiers: Chronicity: acute (5) SBO (small bowel obstruction) Code(s): K56.69 - OTHER INTESTINAL OBSTRUCTION (6) HTN (hypertension) Code(s): I10 - ESSENTIAL (PRIMARY) HYPERTENSION (7) T2DM (type 2 diabetes mellitus) Code(s): E11.9 - TYPE 2 DIABETES MELLITUS WITHOUT COMPLICATIONS Assessment/Plan Ng aspirate only 500 ml. Tmax 99.99 Elevated lipase, lipase only produced from pancreas, and not from small bowel. Will request Ct enterography to evaluate the proximal small bowel. patient has had no prior surgery. other than appendectomy and umbilical hernia repair. Patient has had a bowel movement this am. ? Enteritis, ? etiology.
[2017-04-25] MEDS: FAMOTIDINE 20 MG/50 ML IVPB 50 ML IVPB SCH ×2 (09:24→22:39)
--- NOTE | 2017-04-25 10:53 | PN ---
GI Progress Note Subjective: No acute events + BM's Abdominal pain improved - Objective Vital Signs: Vital Signs Temperature 100.0 F H 04/25/17 08:37 Pulse Rate 106 H 04/25/17 08:37 Respiratory Rate 18 04/25/17 08:37 Blood Pressure 136/75 04/25/17 08:37 O2 Sat by Pulse Oximetry (%) 96 04/24/17 21:00 Constitutional: Calm Eyes: No: Sclera Icterus Cardiovascular: Yes: Regular Rate and Rhythm Respiratory: Yes: CTA Bilaterally Gastrointestinal Inspection: No: Distention ...Auscultate: Yes: Normoactive Bowel Sounds ...Palpate: Yes: Soft, Tenderness (TTP right abdomen > Left). No: Guarding, Tenderness, Rebound ...Percussion: No: Tympanitic Edema: No Neurological: Yes: Alert, Oriented Labs: CBC, BMP 04/25/17 06:00 04/25/17 06:00 INR, PTT INR 1.18 (0.82-1.09) H 04/21/17 20:00 Problem List - Problems (1) Abdominal pain Assessment/Plan: Reviewed case and CT scan w/ Dr. Parmar today. Appears that there is small bowel thickening with normal appearing pancreas that raises suspicion of primary small bowel pathology as well as opposed to true pancreatitis. Dr. Parmar has ordered a CT enterography to further assess small bowel. Keep NGT for now IV hydration Code(s): R10.9 - UNSPECIFIED ABDOMINAL PAIN Qualifiers: Abdominal location: periumbilical Qualified Code(s): R10.33 - Periumbilical pain
[2017-04-25 11:16] LABS: METAMYELOCYTE 2 % (0-2); MYELOCYTE 1 % (0-2); PLATELET ESTIMATE ADEQUATE (NORMAL); TOTAL CELLS COUNTED 100
[2017-04-25] MEDS: SODIUM CHLORIDE 1,000 ML IV SCH ×2 (11:42→19:12)
[2017-04-25 14:12] LABS: GLIADIN ANTIBODY IGG 2 units (0-19)
[2017-04-25] MEDS: ACETAMINOPHEN 325 MG TABLET (FP) PO PRN (15:09)
--- NOTE | 2017-04-25 17:48 | PN ---
Progress Note, Physician Chief Complaint: yesterday C/O worsening abdominal pain and distention BM this morning no vomiting c/o nausea, NG tube inserted feels improved, GI and Surgery input precited History of Present Illness: 67 yrs old man admitted with nausea, vomiting diarrhea, CT shows acute pancreatitis - Current Medication List Current Medications: Active Medications Acetaminophen (Tylenol -) 650 mg PO Q6H PRN PRN Reason: FEVER OR PAIN Last Admin: 04/25/17 15:09 Dose: 650 mg Atorvastatin Calcium (Lipitor -) 10 mg PO HS [facility] Last Admin: 04/24/17 22:17 Dose: 10 mg Famotidine/Sodium Chloride (Pepcid 20 Mg Premixed Ivpb -) 50 mls @ 100 mls/hr IVPB BID [facility] Last Admin: 04/25/17 09:24 Dose: 100 mls/hr Sodium Chloride (Normal Saline -) 1,000 mls @ 75 mls/hr IV ASDIR [facility] Last Admin: 04/25/17 11:42 Dose: Not Given Insulin Aspart (Novolog Vial Sliding Scale -) 1 vial SQ TIDAC [facility] PRN Reason: Protocol Last Admin: 04/25/17 17:18 Dose: Not Given Levothyroxine Sodium (Synthroid -) 25 mcg PO DAILY@0700 [facility] Last Admin: 04/25/17 06:18 Dose: Not Given Morphine Sulfate (Morphine Injection -) 4 mg IVPUSH Q6H PRN Last Admin: 04/25/17 13:15 Dose: 4 mg Ondansetron HCl (Zofran Injection) 4 mg IVPB Q6H PRN PRN Reason: NAUSEA AND/OR VOMITING Last Admin: 04/24/17 17:05 Dose: 4 mg - Objective Vital Signs: Vital Signs Temperature 99.9 F H 04/25/17 14:46 Pulse Rate 113 H 04/25/17 14:46 Respiratory Rate 16 04/25/17 14:46 Blood Pressure 122/85 04/25/17 14:46 O2 Sat by Pulse Oximetry (%) 95 04/25/17 09:00 Elderly man looks comfortable not in distress HEENT: NG tube at place, mm moist no anemia, PERRLA EOMI NECK: No JVD No Bruit CHEST: CTA B/L CVS; S1S2 R mo m/g/r ABD: + distention , mild epigastric tenderness No rebound Bs + EXT: No edema feett, no calf tenderness [employer] ADMINISTRATOR: AOx3 non focal Labs: CBC, BMP 04/25/17 06:00 04/25/17 06:00 INR, PTT INR 1.18 (0.82-1.09) H 04/21/17 20:00 Problem List - Problems (1) Pancreatitis Assessment/Plan: Recurrence of pain with rising Lipase F/U serial Lipase GI consult , NPO Code(s): K85.90 - ACUTE PANCREATITIS WITHOUT NECROSIS OR INFECTION, UNSP Qualifiers: Chronicity: acute (2) JOSELITO (acute kidney injury) Assessment/Plan: Due to dehydration F/U BMP, improved. Code(s): N17.9 - ACUTE KIDNEY FAILURE, UNSPECIFIED (3) Regional enteritis of jejunum Assessment/Plan: Can be infectios or inflamatory F/U anti Gliadin AB F/U Enteroscopy. Code(s): K50.00 - CROHN'S DISEASE OF SMALL INTESTINE WITHOUT COMPLICATIONS (4) HTN (hypertension) Assessment/Plan: Chronic Hemodynamically stable Code(s): I10 - ESSENTIAL (PRIMARY) HYPERTENSION (5) SBO (small bowel obstruction) Code(s): K56.69 - OTHER INTESTINAL OBSTRUCTION (6) Nausea & vomiting Code(s): R11.2 - NAUSEA WITH VOMITING, UNSPECIFIED (7) T2DM (type 2 diabetes mellitus) Code(s): E11.9 - TYPE 2 DIABETES MELLITUS WITHOUT COMPLICATIONS
[2017-04-25] MEDS: ATORVASTATIN CA 10 MG TABLET (FP) PO SCH (22:38)
[2017-04-26] MEDS: INSULIN SLIDING SCALE (NOVOLOG) 1 VIAL SQ SCH ×3 (07:35→17:06)
[2017-04-26] MEDS: LEVOTHYROXINE NA 25 MCG TABLET (FP) PO SCH (07:35)
[2017-04-26 08:07] LABS: MCH 31.3 pg (25.7-33.7); MCHC 33.5 g/dl (32.0-35.9); MEAN CELL VOLUME 93.4 fl (80-96); MEAN PLT VOLUME 8.6 fl (7.5-11.1); PLATELET COUNT 285 K/MM3 (134-434); RDW 14.9 % (11.9-15.9); WHITE BLOOD COUNT 5.7 K/mm3 (4.0-10.0)
[2017-04-26 09:03] LABS: ALBUMIN 1.4 g/dl (3.4-5.0); ANION GAP 12 (8-16); BILIRUBIN,TOTAL 1.1 mg/dL (0.2-1.0); CALCIUM 7.2 mg/dL (8.5-10.1); CO2 23 mmol/L (21-32); CREATININE 0.9 mg/dL (0.7-1.3); GLUCOSE,RANDOM 126 mg/dL (74-106); SGOT/AST 37 U/L (15-37); SGPT/ALT 60 U/L (12-78); TOT PROT 4.2 g/dl (6.4-8.2)
[2017-04-26 09:04] LABS: ALK PHOS 100 U/L (45-117)
--- NOTE | 2017-04-26 09:13 | PN ---
Progress Note, Physician Chief Complaint: Abdominal pain improved less nausea and vomiting, awaiting CT abd result. History of Present Illness: 67 yrs old man admitted with nausea, vomiting diarrhea, CT shows acute pancreatitis - Current Medication List Current Medications: Active Medications Acetaminophen (Tylenol -) 650 mg PO Q6H PRN PRN Reason: FEVER OR PAIN Last Admin: 04/25/17 15:09 Dose: 650 mg Atorvastatin Calcium (Lipitor -) 10 mg PO HS [facility] Last Admin: 04/25/17 22:38 Dose: Not Given Famotidine/Sodium Chloride (Pepcid 20 Mg Premixed Ivpb -) 50 mls @ 100 mls/hr IVPB BID [facility] Last Admin: 04/25/17 22:39 Dose: 100 mls/hr Sodium Chloride (Normal Saline -) 1,000 mls @ 75 mls/hr IV ASDIR [facility] Last Admin: 04/25/17 19:12 Dose: 75 mls/hr Insulin Aspart (Novolog Vial Sliding Scale -) 1 vial SQ TIDAC [facility] PRN Reason: Protocol Last Admin: 04/26/17 07:35 Dose: Not Given Levothyroxine Sodium (Synthroid -) 25 mcg PO DAILY@0700 [facility] Last Admin: 04/26/17 07:35 Dose: Not Given Morphine Sulfate (Morphine Injection -) 4 mg IVPUSH Q6H PRN Last Admin: 04/25/17 19:12 Dose: 4 mg Ondansetron HCl (Zofran Injection) 4 mg IVPB Q6H PRN PRN Reason: NAUSEA AND/OR VOMITING Last Admin: 04/24/17 17:05 Dose: 4 mg - Objective Vital Signs: Vital Signs Temperature 97.9 F 04/25/17 18:00 Pulse Rate 117 H 04/25/17 18:00 Respiratory Rate 18 04/25/17 18:00 Blood Pressure 133/75 04/25/17 18:00 O2 Sat by Pulse Oximetry (%) 95 04/25/17 21:00 Elderly man looks comfortable not in distress HEENT: mm moist no anemia, PERRLA EOMI NECK: No JVD No Bruit CHEST: CTA B/L CVS; S1S2 R mo m/g/r ABD: + distention , mild epigastric tenderness No rebound Bs + EXT: No edema feett, no calf tenderness ACCOUNT SPECIALIST: AOx3 non focal Labs: CBC, BMP 04/26/17 06:00 INR, PTT INR 1.18 (0.82-1.09) H 04/21/17 20:00 Problem List - Problems (1) Pancreatitis Assessment/Plan: Improving F/U Lipase level Code(s): K85.90 - ACUTE PANCREATITIS WITHOUT NECROSIS OR INFECTION, UNSP Qualifiers: Chronicity: acute (2) JOSELITO (acute kidney injury) Assessment/Plan: Improved Due to dehydration F/U BMP Code(s): N17.9 - ACUTE KIDNEY FAILURE, UNSPECIFIED (3) Regional enteritis of jejunum Assessment/Plan: F/y U GI and surgery recommendations F/U CT result Code(s): K50.00 - CROHN'S DISEASE OF SMALL INTESTINE WITHOUT COMPLICATIONS (4) HTN (hypertension) Assessment/Plan: Chronic Hemodynamically stable Code(s): I10 - ESSENTIAL (PRIMARY) HYPERTENSION (5) SBO (small bowel obstruction) Assessment/Plan: Partial SBO due to ILeus developed distention F/U KUB, NG tube surgery consult Code(s): K56.69 - OTHER INTESTINAL OBSTRUCTION (6) Nausea & vomiting Assessment/Plan: Due to acute Pancreatitis improving F/U surgery and CT result. Code(s): R11.2 - NAUSEA WITH VOMITING, UNSPECIFIED (7) T2DM (type 2 diabetes mellitus) Code(s): E11.9 - TYPE 2 DIABETES MELLITUS WITHOUT COMPLICATIONS
[2017-04-26 09:33] LABS: TOTAL CELLS COUNTED 100
[2017-04-26 09:34] LABS: METAMYELOCYTE 3 % (0-2); MYELOCYTE 2 % (0-2); PLATELET ESTIMATE ADEQUATE (NORMAL)
[2017-04-26] MEDS: morphine CARPU-JECT 2 MG/1 ML DISP.SYRIN IVPUSH PRN ×2 (09:36→16:07)
[2017-04-26] MEDS: FAMOTIDINE 20 MG/50 ML IVPB 50 ML IVPB SCH ×2 (09:37→22:48)
[2017-04-26] MEDS: SODIUM CHLORIDE 1,000 ML IV SCH ×2 (10:36→12:35)
--- NOTE | 2017-04-26 11:59 | PN ---
Progress Note (short form) - Note Progress Note: CT enterography report noted. c/w PSBO with transition in RLQ. Mr. Gardner did complain of more right sided pain yesterday NGT Surgical follow-up Problem List - Problems (1) Abdominal pain Code(s): R10.9 - UNSPECIFIED ABDOMINAL PAIN Qualifiers: Abdominal location: periumbilical Qualified Code(s): R10.33 - Periumbilical pain
--- NOTE | 2017-04-26 15:44 | PN ---
Progress Note, Physician - Current Medication List Current Medications: Active Medications Acetaminophen (Tylenol -) 650 mg PO Q6H PRN PRN Reason: FEVER OR PAIN Last Admin: 04/25/17 15:09 Dose: 650 mg Atorvastatin Calcium (Lipitor -) 10 mg PO HS [facility] Last Admin: 04/25/17 22:38 Dose: Not Given Famotidine/Sodium Chloride (Pepcid 20 Mg Premixed Ivpb -) 50 mls @ 100 mls/hr IVPB BID [facility] Last Admin: 04/26/17 09:37 Dose: 100 mls/hr Sodium Chloride (Normal Saline -) 1,000 mls @ 75 mls/hr IV ASDIR [facility] Last Admin: 04/26/17 12:35 Dose: 75 mls/hr Insulin Aspart (Novolog Vial Sliding Scale -) 1 vial SQ TIDAC [facility] PRN Reason: Protocol Last Admin: 04/26/17 11:17 Dose: Not Given Levothyroxine Sodium (Synthroid -) 25 mcg PO DAILY@0700 [facility] Last Admin: 04/26/17 07:35 Dose: Not Given Morphine Sulfate (Morphine Injection -) 4 mg IVPUSH Q6H PRN Last Admin: 04/26/17 09:36 Dose: 4 mg Ondansetron HCl (Zofran Injection) 4 mg IVPB Q6H PRN PRN Reason: NAUSEA AND/OR VOMITING Last Admin: 04/24/17 17:05 Dose: 4 mg - Objective Vital Signs: Vital Signs Temperature 99.0 F 04/26/17 14:40 Pulse Rate 94 H 04/26/17 14:40 Respiratory Rate 16 04/26/17 14:40 Blood Pressure 116/70 04/26/17 14:40 O2 Sat by Pulse Oximetry (%) 95 04/26/17 09:00 Labs: CBC, BMP 04/26/17 06:00 04/26/17 06:00 INR, PTT INR 1.18 (0.82-1.09) H 04/21/17 20:00 Problem List - Problems (1) Abdominal pain Code(s): R10.9 - UNSPECIFIED ABDOMINAL PAIN Qualifiers: Abdominal location: periumbilical Qualified Code(s): R10.33 - Periumbilical pain (2) Vomiting Code(s): R11.10 - VOMITING, UNSPECIFIED Qualifiers: Vomiting type: unspecified (3) Elevated lipase Code(s): R74.8 - ABNORMAL LEVELS OF OTHER SERUM ENZYMES (4) Pancreatitis Code(s): K85.90 - ACUTE PANCREATITIS WITHOUT NECROSIS OR INFECTION, UNSP Qualifiers: Chronicity: acute (5) SBO (small bowel obstruction) Code(s): K56.69 - OTHER INTESTINAL OBSTRUCTION (6) HTN (hypertension) Code(s): I10 - ESSENTIAL (PRIMARY) HYPERTENSION (7) T2DM (type 2 diabetes mellitus) Code(s): E11.9 - TYPE 2 DIABETES MELLITUS WITHOUT COMPLICATIONS Assessment/Plan Surgery: Patient still braxton some abdominal pain. He has had a bowel movement today. NG tube has been kept clamped since yesterday , and has not been connected to suction , after the CT scan. Ct scan shows partial small bowel obstruction , ? transition point in the right lower quadrant. Abdomen is soft , not tender , mild sitention. Plan : Reconnect NG tube to suction . If not relieved , he will need surgery , laparosciopy , possible laparotomy. NG tube reconnected to suction. Will monitor output. Hydrate.
[2017-04-26] MEDS: ACETAMINOPHEN 325 MG TABLET (FP) PO PRN (17:06)
[2017-04-26] MEDS: ATORVASTATIN CA 10 MG TABLET (FP) PO SCH (22:49)
[2017-04-27] MEDS: INSULIN SLIDING SCALE (NOVOLOG) 1 VIAL SQ SCH ×3 (06:54→18:27)
[2017-04-27] MEDS: LEVOTHYROXINE NA 25 MCG TABLET (FP) PO SCH (06:54)
[2017-04-27 07:18] LABS: MCH 31.5 pg (25.7-33.7); MCHC 33.7 g/dl (32.0-35.9); MEAN CELL VOLUME 93.5 fl (80-96); MEAN PLT VOLUME 8.6 fl (7.5-11.1); PLATELET COUNT 332 K/MM3 (134-434); RDW 14.8 % (11.9-15.9); WHITE BLOOD COUNT 6.4 K/mm3 (4.0-10.0)
[2017-04-27 07:46] LABS: ALBUMIN 1.4 g/dl (3.4-5.0); ANION GAP 12 (8-16); CALCIUM 7.6 mg/dL (8.5-10.1); CO2 24 mmol/L (21-32); GLUCOSE,RANDOM 138 mg/dL (74-106); SGOT/AST 18 U/L (15-37); SGPT/ALT 49 U/L (12-78)
[2017-04-27 07:49] LABS: ALK PHOS 99 U/L (45-117); BILIRUBIN,TOTAL 1.1 mg/dL (0.2-1.0); TOT PROT 4.6 g/dl (6.4-8.2)
--- NOTE | 2017-04-27 09:01 | PN ---
Progress Note, Physician Chief Complaint: Still c/o abd pain , > 700 Cc in NG tube aspirate . History of Present Illness: 67 yrs old man admitted with nausea, vomiting diarrhea, CT shows acute pancreatitis developed SBO, remained symptomatic despite NG tube aspiration and NPO. - Current Medication List Current Medications: Active Medications Acetaminophen (Tylenol -) 650 mg PO Q6H PRN PRN Reason: FEVER OR PAIN Last Admin: 04/26/17 17:06 Dose: 650 mg Atorvastatin Calcium (Lipitor -) 10 mg PO HS [facility] Last Admin: 04/26/17 22:49 Dose: Not Given Famotidine/Sodium Chloride (Pepcid 20 Mg Premixed Ivpb -) 50 mls @ 100 mls/hr IVPB BID [facility] Last Admin: 04/26/17 22:48 Dose: 100 mls/hr Sodium Chloride (Normal Saline -) 1,000 mls @ 75 mls/hr IV ASDIR [facility] Last Admin: 04/26/17 12:35 Dose: 75 mls/hr Insulin Aspart (Novolog Vial Sliding Scale -) 1 vial SQ TIDAC [facility] PRN Reason: Protocol Last Admin: 04/27/17 06:54 Dose: Not Given Levothyroxine Sodium (Synthroid -) 25 mcg PO DAILY@0700 [facility] Last Admin: 04/27/17 06:54 Dose: Not Given Ondansetron HCl (Zofran Injection) 4 mg IVPB Q6H PRN PRN Reason: NAUSEA AND/OR VOMITING Last Admin: 04/24/17 17:05 Dose: 4 mg - Objective Vital Signs: Vital Signs Temperature 99.7 F H 04/27/17 06:00 Pulse Rate 108 H 04/27/17 06:00 Respiratory Rate 20 04/27/17 06:00 Blood Pressure 140/75 04/27/17 06:00 O2 Sat by Pulse Oximetry (%) 98 04/27/17 00:12 Elderly man not in distress, c/o abdominal pain HEENT: mm moist no anemia, PERRLA EOMI NECK: No JVD No Bruit CHEST: CTA B/L CVS; S1S2 R mo m/g/r ABD: + distention , mild epigastric tenderness No rebound Bs + EXT: No edema feett, no calf tenderness [employer] PILOT: AOx3 non focal Labs: CBC, BMP 04/27/17 06:30 04/27/17 06:30 INR, PTT INR 1.18 (0.82-1.09) H 04/21/17 20:00 Problem List - Problems (1) Pancreatitis Assessment/Plan: Improving F/U Lipase level, less abd pain. Code(s): K85.90 - ACUTE PANCREATITIS WITHOUT NECROSIS OR INFECTION, UNSP Qualifiers: Chronicity: acute (2) JOSELITO (acute kidney injury) Assessment/Plan: Improved Due to dehydration F/U BMP Code(s): N17.9 - ACUTE KIDNEY FAILURE, UNSPECIFIED (3) Regional enteritis of jejunum Assessment/Plan: Ct abd shows edematus Jejunum and SBO schedule for surgery. (4) HTN (hypertension) Assessment/Plan: Chronic Hemodynamically stable Code(s): I10 - ESSENTIAL (PRIMARY) HYPERTENSION (5) SBO (small bowel obstruction) Assessment/Plan: Remained symptomatic despite NG tube schedule for surgery. Code(s): K56.69 - OTHER INTESTINAL OBSTRUCTION (6) Nausea & vomiting Assessment/Plan: Due to acute Pancreatitis improving F/U surgery and CT result. Code(s): R11.2 - NAUSEA WITH VOMITING, UNSPECIFIED (7) T2DM (type 2 diabetes mellitus) Assessment/Plan: F/U accucheck and correction dose Insulin Code(s): E11.9 - TYPE 2 DIABETES MELLITUS WITHOUT COMPLICATIONS
[2017-04-27] MEDS ORDERED: morphine CARPU-JECT 2 MG/1 ML DISP.SYRIN IVPUSH PRN (09:03)
[2017-04-27] MEDS ORDERED: AMINO ACIDS 4.25%/D5W 1,000 ML IV SCH (09:15)
[2017-04-27] MEDS ORDERED: PT OWN MED DRAWER 7, Y5N ONE (09:58)
[2017-04-27] MEDS: FAMOTIDINE 20 MG/50 ML IVPB 50 ML IVPB SCH ×2 (10:05→21:10)
[2017-04-27] MEDS: ONDANSETRON 4 MG/2 ML VIAL IVPB PRN (11:11)
--- NOTE | 2017-04-27 11:54 | PN ---
GI Progress Note Subjective: No acute events Continued right lower abdominal pain NGT to wall suction - Objective Vital Signs: Vital Signs Temperature 99.2 F 04/27/17 09:00 Pulse Rate 108 H 04/27/17 09:00 Respiratory Rate 18 04/27/17 09:00 Blood Pressure 143/85 04/27/17 09:00 O2 Sat by Pulse Oximetry (%) 98 04/27/17 00:12 Constitutional: Calm Eyes: No: Sclera Icterus Cardiovascular: Yes: Regular Rate and Rhythm Gastrointestinal Inspection: No: Distention ...Auscultate: Yes: Normoactive Bowel Sounds ...Palpate: Yes: Tenderness (Mild TTP) ...Percussion: No: Tympanitic Edema: No Neurological: Yes: Alert, Oriented Labs: CBC, BMP 04/27/17 06:30 04/27/17 06:30 INR, PTT INR 1.18 (0.82-1.09) H 04/21/17 20:00 Problem List - Problems (1) Abdominal pain Assessment/Plan: Suspected SBO with transition zone in the RLQ Continuing NGT decompression For surgery today: laparoscopy possible laparotomy Code(s): R10.9 - UNSPECIFIED ABDOMINAL PAIN Qualifiers: Abdominal location: periumbilical Qualified Code(s): R10.33 - Periumbilical pain
[2017-04-27] MEDS: SODIUM CHLORIDE 1,000 ML IV SCH ×2 (12:06→18:31)
[2017-04-27] MEDS ORDERED: PROPOFOL 20 ML ONE ×2 (13:26)
[2017-04-27] MEDS ORDERED: SUCCINYLCHOLINE CHLORIDE 200 MG/10 ML VIAL ONE (13:26)
[2017-04-27] MEDS ORDERED: LIDOCAINE HCL/PF 2% SDV 5ML VIAL ONE (13:27)
[2017-04-27] MEDS ORDERED: ROCURONIUM BROMIDE 50 MG/5 ML VIAL ONE (13:27)
[2017-04-27] MEDS ORDERED: KETOROLAC TROMETHAMINE 30 MG/1 ML VIAL ONE (13:27)
[2017-04-27] MEDS ORDERED: ceFAZolin SODIUM 1 GM VIAL ONE (13:27)
[2017-04-27] MEDS ORDERED: MIDAZOLAM HCL 2 MG/2 ML SINGLE DOSE VIAL ONE (13:27)
[2017-04-27] MEDS ORDERED: DEXAMETHASONE SOD PHOSPHATE 4 MG/1 ML VIAL ONE (13:27)
[2017-04-27] MEDS ORDERED: CEFOXITIN SODIUM 1 GM IVPB ONE (14:17)
[2017-04-27] MEDS ORDERED: cefOXitin SODIUM 1 GM VIAL (RESTRICTED TO ID) IVPB ONE (14:20)
[2017-04-27] MEDS ORDERED: NEOSTIGMINE METHYLSULFATE 0.5 MG/ML - 10 ML MDV ONE (15:23)
[2017-04-27] MEDS ORDERED: GLYCOPYRROLATE 0.2 MG/1 ML VIAL ONE (15:27)
--- NOTE | 2017-04-27 16:05 | OP ---
Operative Note - Note: Operative Date: 04/27/17 Pre-Operative Diagnosis: Small intestinal, intestinal obstruction. Operation: Laparoscopy, exploratory laparotomy. Findings: Very edematous inflamed proximal 2 feet of jejunum, from duodenojejunal flexure. No intraluminal obstruction , no bands, no adhesions, no stricture. Normal transition beyond. Distal small bowel. stomach and colon is normal. Laparoscopy, converted to open procedure, to rule out any intraluminal pathology, or internal hernia. Post-Operative Diagnosis: Other (Inflammed and dilated proximal jejunum without obstruction of the lumen.) Surgeon: Lani Parmar Package Dyeing Machine Operator: Lanette Mendoza Anesthesiologist/DATA WAREHOUSE CONSULTANT: Rip Chamorro Anesthesia: General Specimens Removed: none Estimated Blood Loss (mls): 15 Operative Report Dictated: Yes
[2017-04-27] MEDS ORDERED: ONDANSETRON 4 MG/2 ML VIAL IVPUSH PRN (16:34)
[2017-04-27] MEDS ORDERED: HYDROmorphone HCL CARPU-JECT 1 MG/1 ML DISP.SYRIN IVPUSH PRN (16:34)
[2017-04-27] MEDS ORDERED: LACTATED RINGERS SOLUTION 1,000 ML IV SCH (16:45)
[2017-04-27] MEDS ORDERED: HYDROmorphone HCL CARPU-JECT 2 MG/1 ML DISP.SYRIN IVPUSH ONE ×4 (16:45→17:20)
[2017-04-27] MEDS ORDERED: HYDROmorphone HCL CARPU-JECT 2 MG/1 ML DISP.SYRIN ONE ×2 (16:47→17:17)
--- NOTE | 2017-04-27 17:10 | SURG ---
Surgery Icu Staff Nurse Note I[facility] Staff Nurse: Lanette Mendoza PA-C Date of Service: 04/27/17 Diagnosis: Small intestinal, intestinal obstruction. Procedure: Laparoscopy, exploratory laparotomy I was present for the entirety of the operative procedure. For further detail, please refer to operative report. <Lanette Mendoza - Last Filed: 04/27/17 17:09> Icu Staff Nurse: Lanette Mendoza PA-C I was present for the entirety of the operative procedure. For further detail, please refer to operative report. <Lani Parmar - Last Filed: 04/28/17 09:53> Visit type - Case Type Case Type: ED Admission - Emergency Emergency Visit: Yes ED Registration Date: 04/22/17 Care time: The patient presented to the Emergency Department on the above date and was hospitalized for further evaluation of their emergent condition. - New patient This patient is new to me today: Yes Date on this admission: 04/27/17 - Critical Care Critical Care patient: No <Lanette Mendoza Last Filed: 04/27/17 17:09>
[2017-04-27] MEDS: morphine CARPU-JECT 2 MG/1 ML DISP.SYRIN IVPUSH PRN (18:50)
[2017-04-28] MEDS: morphine CARPU-JECT 2 MG/1 ML DISP.SYRIN IVPUSH PRN ×7 (01:47→23:57)
[2017-04-28] MEDS: SODIUM CHLORIDE 1,000 ML IV SCH ×2 (05:22→17:23)
[2017-04-28] MEDS: INSULIN SLIDING SCALE (NOVOLOG) 1 VIAL SQ SCH ×3 (06:00→17:42)
--- NOTE | 2017-04-28 07:13 | OP ---
DATE OF OPERATION: 04/27/2017 PREOPERATIVE DIAGNOSIS: A small bowel intestinal obstruction, not responding to nonsurgical management. Possible obstruction in the jejunum with persistent dilatation of the jejunum and rule out internal hernia. POSTOPERATIVE DIAGNOSIS: Markedly dilated and inflamed proximal 2 feet of the jejunum from the duodenojejunal flexure. There was no intraluminal abnormality , no adhesions, no tumors, no polyps, and no inflammation. OPERATIVE PROCEDURE: Diagnostic laparoscopy, with exploratory laparotomy. SURGEON: Radha Parmar MD FIRST AID INSTRUCTOR: VERONICA Jackson ANESTHESIA: General anesthesia. INDICATIONS: This 67-year-old man presented with abdominal pain and vomiting 4 days ago. He was placed on NG tube. CAT scan, CT angiography and abdominal x-rays showed dilatation of the proximal jejunum suggestive of mechanical obstruction, possible internal hernia. He also had elevated lipase, but his pancreas was normal. Patient was treated medically but did not respond to treatment, had persistent dilated small bowel. Patient was brought in for diagnostic laparoscopy and possible laparotomy after repeat x-ray showed persistent dilatation of the proximal small bowel and after discussion with radiologist. Consent was obtained. Risks, benefits, and complications were discussed with the patient. Patient had previous appendectomy, and repair of umbilical hernia. The patient was treated with nasogastric tube and IV hydration. An NG tube was placed in the stomach about a couple days earlier. DESCRIPTION OF PROCEDURE: Patient was given general anesthesia, abdomen was painted and draped. Winkler catheter was placed in the bladder, which was removed right after the surgery. A time out was called. Incision was made 2 fingerbreadths below the xiphoid in the midline. This was carried through the skin and subcutaneous tissue, the anterior rectus sheath, posterior rectus sheath, and peritoneum. A 10/12 mm laparoscopic trocar was inserted into the abdominal cavity. The abdomen was then inflated with carbon dioxide at 6 L per minute to maximum internal abdominal pressure of 15 mmHg. A 5-mm camera was introduced into the abdominal cavity. The omentum was normal. There were no adhesions in the abdominal cavity. There was no fluid, no blood. Two 5-mm trocars were inserted in the abdomen, in the left flank. These were noted entering the abdominal cavity under direct vision of the camera. Two trocars were inserted and two bowel graspers were inserted through these trocars. Another 5-mm trocar was inserted in the suprapubic region, again noted the abdominal cavity under direct vision with the camera. The greater omentum was then lifted off and the transverse colon was lifted. The proximal jejunum was noted dilated all the way from the duodenojejunal flexure for about 2 feet. However, beyond this, there is a natural transition to normal caliber of the small bowel, which went all the way down to the distal ileum and was normal. There was no mass that was palpated within the lumen of the jejunum. There was no internal hernia noted, and the mesentery of the bowel was also normal. The large bowel, cecum, descending colon were also normal. As there was no hands-on inspection of the small bowel, it was then decided to convert to an open exploratory laparotomy. A midline incision was made above and below the umbilicus. Small bowel was run from the duodenojejunal flexure all the way to the terminal ileum. The proximal 2 feet of small bowel, from the duodenojejunal flexure and the ligament of Treitz , upto about 2 feetof the proximal small bowel, was markedly edematous, thick walled; however, there is no evidence of small bowel obstruction, and no mass palpated within the lumen of the bowel. There was no point of transition on the bowel. The rest of the small bowel was normal. The lesser omentum was then opened, opening the greater omentum; however, pancreas appeared normal. There was no edema of the pancreas. There was no abscess and no retroperitoneal inflammation, and there is minimal clear fluid in the peritoneal cavity. The rest of the large bowel was also normal. The abdomen was then closed showing no abnormality and no obvious cause for dilated proximal small bowel, other than inflammation and edematous thickened small bowel. The abdomen was closed with a number 1 looped PDS suture. The skin was approximated with caprice, the linea alba in the subxiphoid incision was approximated with interrupted 2-0 Vicryl sutures. Sterile dressing was applied. Estimated blood loss was 15 mL. Sponge count, instrument count was correct. Patient was extubated and sent to recovery room in satisfactory and stable condition. Flaquita [id number] [facility]
[2017-04-28 08:14] LABS: MCH 32.1 pg (25.7-33.7); MCHC 34.3 g/dl (32.0-35.9); MEAN CELL VOLUME 93.7 fl (80-96); MEAN PLT VOLUME 8.8 fl (7.5-11.1); PLATELET COUNT 340 K/MM3 (134-434); RDW 15.3 % (11.9-15.9); WHITE BLOOD COUNT 8.2 K/mm3 (4.0-10.0)
[2017-04-28 08:33] LABS: ALBUMIN 1.3 g/dl (3.4-5.0); ANION GAP 10 (8-16); CALCIUM 7.5 mg/dL (8.5-10.1); CO2 24 mmol/L (21-32); GLUCOSE,RANDOM 159 mg/dL (74-106); SGOT/AST 15 U/L (15-37); SGPT/ALT 37 U/L (12-78)
[2017-04-28 08:34] LABS: ALK PHOS 77 U/L (45-117); BILIRUBIN,TOTAL 0.8 mg/dL (0.2-1.0); TOT PROT 4.2 g/dl (6.4-8.2)
[2017-04-28] MEDS: FAMOTIDINE 20 MG/50 ML IVPB 50 ML IVPB SCH ×2 (09:49→22:58)
--- NOTE | 2017-04-28 11:09 | PN ---
Progress Note (short form) - Note Progress Note: Anesthesia postop note POD#1 S/P diagnostic laparoscopy converted to laparotomy, under GETA. pat seen and examined. VSS. No post anestheisa. signed off. complications.
[2017-04-28 12:20] LABS: METAMYELOCYTE 5 % (0-2); TOTAL CELLS COUNTED 100
[2017-04-28 12:21] LABS: MYELOCYTE 3 % (0-2); REACTIVE LYMPHOCYTES 1 % (0-80)
[2017-04-28 12:27] LABS: HYPOCHROMIA 1+; PLATELET ESTIMATE ADEQUATE (NORMAL)
[2017-04-28 12:28] LABS: BURR CELLS 3+; TEAR DROP CELLS FEW
--- NOTE | 2017-04-28 13:04 | PN ---
GI Progress Note Subjective: S/P Laparoscopy / laparotomy POD [address] Parmar today: No obvious obstruction and he did not feel a mass lesion in the small bowel when it was run. He did note a segment of inflamed jejunum. No BM / flatus as of yet Assessment: ? enteritis, ? detorted loop of bowel Plan: Post op care per surgery If persistence of symptoms, enteroscopy would be considered when acute issues are resolved - Objective Vital Signs: Vital Signs Temperature 98.5 F 04/28/17 09:00 Pulse Rate 106 H 04/28/17 09:00 Respiratory Rate 22 04/28/17 09:00 Blood Pressure 139/78 04/28/17 09:00 O2 Sat by Pulse Oximetry (%) 97 04/27/17 21:00 Labs: CBC, BMP 04/28/17 06:00 04/28/17 06:00 INR, PTT INR 1.18 (0.82-1.09) H 04/21/17 20:00 Problem List - Problems (1) Abdominal pain Code(s): R10.9 - UNSPECIFIED ABDOMINAL PAIN Qualifiers: Abdominal location: periumbilical Qualified Code(s): R10.33 - Periumbilical pain
--- NOTE | 2017-04-28 18:39 | PN ---
Progress Note, Physician Chief Complaint: Still c/o abd pain ,underwent Laproscopic, exploratory laprotomy, shows edematus Jejunal loops., no adhesion or mechanical obstruction.NG tube at place. History of Present Illness: 67 yrs old man admitted with nausea, vomiting diarrhea, CT shows acute pancreatitis - Current Medication List Current Medications: Active Medications Famotidine/Sodium Chloride (Pepcid 20 Mg Premixed Ivpb -) 50 mls @ 100 mls/hr IVPB BID [facility] Last Admin: 04/28/17 09:49 Dose: 100 mls/hr Sodium Chloride (Normal Saline -) 1,000 mls @ 75 mls/hr IV ASDIR [facility] Last Admin: 04/28/17 17:23 Dose: 75 mls/hr Amino Acids (Clinimix -) 1,000 mls @ 84 mls/hr IV Q12H [facility] Insulin Aspart (Novolog Vial Sliding Scale -) 1 vial SQ TIDAC [facility] PRN Reason: Protocol Last Admin: 04/28/17 17:42 Dose: Not Given Morphine Sulfate (Morphine Injection -) 2 mg IVPUSH Q4H PRN PRN Reason: PAIN Last Admin: 04/28/17 17:18 Dose: 2 mg Ondansetron HCl (Zofran Injection) 4 mg IVPB Q6H PRN PRN Reason: NAUSEA AND/OR VOMITING - Objective Vital Signs: Vital Signs Temperature 98.3 F 04/28/17 15:20 Pulse Rate 104 H 04/28/17 15:20 Respiratory Rate 18 04/28/17 15:20 Blood Pressure 124/73 04/28/17 15:20 O2 Sat by Pulse Oximetry (%) 96 04/28/17 09:00 Elderly man looks comfortable not in distress HEENT: mm moist no anemia, PERRLA EOMI NECK: No JVD No Bruit CHEST: CTA B/L CVS; S1S2 R mo m/g/r ABD: S/p surgery diffuse tenderness , mild distention , mild epigastric tenderness No rebound Bs + EXT: No edema feett, no calf tenderness CLINIC LPN: AOx3 non focal Labs: CBC, BMP 04/28/17 06:00 04/28/17 06:00 INR, PTT INR 1.18 (0.82-1.09) H 04/21/17 20:00 Problem List - Problems (1) Pancreatitis Assessment/Plan: Improving F/U Lipase level Code(s): K85.90 - ACUTE PANCREATITIS WITHOUT NECROSIS OR INFECTION, UNSP Qualifiers: Chronicity: acute (2) JOSELITO (acute kidney injury) Assessment/Plan: Improved Due to dehydration F/U BMP Code(s): N17.9 - ACUTE KIDNEY FAILURE, UNSPECIFIED (3) Regional enteritis of jejunum Assessment/Plan: S/P laproscopic, explarotary laprotomy, edematous proximal jejunal loops. (4) HTN (hypertension) Assessment/Plan: Chronic Hemodynamically stable Code(s): I10 - ESSENTIAL (PRIMARY) HYPERTENSION (5) SBO (small bowel obstruction) Assessment/Plan: S/P laproscopic EL, NG karen+be at place cont pain control. Code(s): K56.69 - OTHER INTESTINAL OBSTRUCTION (6) Nausea & vomiting Assessment/Plan: Due to acute Pancreatitis improving cont pepsisd , zofran.. Code(s): R11.2 - NAUSEA WITH VOMITING, UNSPECIFIED (7) T2DM (type 2 diabetes mellitus) Assessment/Plan: F/U accucheck and correction dose Insulin Code(s): E11.9 - TYPE 2 DIABETES MELLITUS WITHOUT COMPLICATIONS
[2017-04-28] MEDS: AMINO ACIDS 4.25%/D5W 1,000 ML IV SCH (19:02)
--- NOTE | 2017-04-28 19:10 | PN ---
Progress Note, Physician - Current Medication List Current Medications: Active Medications Famotidine/Sodium Chloride (Pepcid 20 Mg Premixed Ivpb -) 50 mls @ 100 mls/hr IVPB BID [facility] Last Admin: 04/28/17 09:49 Dose: 100 mls/hr Sodium Chloride (Normal Saline -) 1,000 mls @ 75 mls/hr IV ASDIR [facility] Last Admin: 04/28/17 17:23 Dose: 75 mls/hr Amino Acids (Clinimix -) 1,000 mls @ 84 mls/hr IV Q12H [facility] Last Admin: 04/28/17 19:02 Dose: 84 mls/hr Insulin Aspart (Novolog Vial Sliding Scale -) 1 vial SQ TIDAC [facility] PRN Reason: Protocol Last Admin: 04/28/17 17:42 Dose: Not Given Morphine Sulfate (Morphine Injection -) 2 mg IVPUSH Q4H PRN PRN Reason: PAIN Last Admin: 04/28/17 17:18 Dose: 2 mg Ondansetron HCl (Zofran Injection) 4 mg IVPB Q6H PRN PRN Reason: NAUSEA AND/OR VOMITING - Objective Vital Signs: Vital Signs Temperature 98.3 F 04/28/17 15:20 Pulse Rate 104 H 04/28/17 15:20 Respiratory Rate 18 04/28/17 15:20 Blood Pressure 124/73 04/28/17 15:20 O2 Sat by Pulse Oximetry (%) 96 04/28/17 09:00 Labs: CBC, BMP 04/28/17 06:00 04/28/17 06:00 INR, PTT INR 1.18 (0.82-1.09) H 04/21/17 20:00 Problem List - Problems (1) Abdominal pain Code(s): R10.9 - UNSPECIFIED ABDOMINAL PAIN Qualifiers: Abdominal location: periumbilical Qualified Code(s): R10.33 - Periumbilical pain (2) Vomiting Code(s): R11.10 - VOMITING, UNSPECIFIED Qualifiers: Vomiting type: unspecified (3) Elevated lipase Code(s): R74.8 - ABNORMAL LEVELS OF OTHER SERUM ENZYMES (4) Pancreatitis Code(s): K85.90 - ACUTE PANCREATITIS WITHOUT NECROSIS OR INFECTION, UNSP Qualifiers: Chronicity: acute (5) SBO (small bowel obstruction) Code(s): K56.69 - OTHER INTESTINAL OBSTRUCTION (6) HTN (hypertension) Code(s): I10 - ESSENTIAL (PRIMARY) HYPERTENSION (7) T2DM (type 2 diabetes mellitus) Code(s): E11.9 - TYPE 2 DIABETES MELLITUS WITHOUT COMPLICATIONS Assessment/Plan C/O abdominal pain , has been passing flatu. NG aspirate only 250ml/ Operative findings has been explained. Started on clinimix. will D/CNG tube tomorrow.
[2017-04-29] MEDS: morphine CARPU-JECT 2 MG/1 ML DISP.SYRIN IVPUSH PRN ×3 (03:41→21:51)
[2017-04-29] MEDS: INSULIN SLIDING SCALE (NOVOLOG) 1 VIAL SQ SCH ×3 (06:01→17:17)
[2017-04-29] MEDS: AMINO ACIDS 4.25%/D5W 1,000 ML IV SCH ×4 (07:51→21:06)
[2017-04-29 07:56] LABS: MCH 31.6 pg (25.7-33.7); MCHC 33.5 g/dl (32.0-35.9); MEAN CELL VOLUME 94.3 fl (80-96); MEAN PLT VOLUME 8.5 fl (7.5-11.1); PLATELET COUNT 364 K/MM3 (134-434); RDW 15.3 % (11.9-15.9); WHITE BLOOD COUNT 7.2 K/mm3 (4.0-10.0)
[2017-04-29 08:42] LABS: ALBUMIN 1.3 g/dl (3.4-5.0); ANION GAP 9 (8-16); CALCIUM 7.2 mg/dL (8.5-10.1); CO2 27 mmol/L (21-32); GLUCOSE,RANDOM 166 mg/dL (74-106); SGOT/AST 20 U/L (15-37); SGPT/ALT 33 U/L (12-78)
[2017-04-29 08:43] LABS: ALK PHOS 80 U/L (45-117); BILIRUBIN,TOTAL 0.8 mg/dL (0.2-1.0); TOT PROT 4.5 g/dl (6.4-8.2)
--- NOTE | 2017-04-29 08:48 | PN ---
Progress Note, Physician Chief Complaint: Feels ,underwent exploratory laprotomy on 04/27/2017 shows no lesion, c/o less pain History of Present Illness: 67 yrs old man admitted with nausea, vomiting diarrhea, CT shows acute pancreatitis, developed recurrent SBO underwent explarotary laprotomy - Current Medication List Current Medications: Active Medications Famotidine/Sodium Chloride (Pepcid 20 Mg Premixed Ivpb -) 50 mls @ 100 mls/hr IVPB BID [facility] Last Admin: 04/28/17 22:58 Dose: 100 mls/hr Sodium Chloride (Normal Saline -) 1,000 mls @ 75 mls/hr IV ASDIR [facility] Last Admin: 04/28/17 17:23 Dose: 75 mls/hr Amino Acids (Clinimix -) 1,000 mls @ 84 mls/hr IV Q12H [facility] Last Admin: 04/29/17 07:55 Dose: 84 mls/hr Insulin Aspart (Novolog Vial Sliding Scale -) 1 vial SQ TIDAC [facility] PRN Reason: Protocol Last Admin: 04/29/17 06:01 Dose: 2 unit Morphine Sulfate (Morphine Injection -) 2 mg IVPUSH Q3H PRN PRN Reason: PAIN Last Admin: 04/29/17 03:41 Dose: 2 mg Ondansetron HCl (Zofran Injection) 4 mg IVPB Q6H PRN PRN Reason: NAUSEA AND/OR VOMITING - Objective Vital Signs: Vital Signs Temperature 97.7 F 04/29/17 05:56 Pulse Rate 101 H 04/29/17 05:56 Respiratory Rate 20 04/29/17 05:56 Blood Pressure 154/87 04/29/17 05:56 O2 Sat by Pulse Oximetry (%) 96 04/28/17 21:00 Elderly man looks comfortable not in distress HEENT: mm moist no anemia, PERRLA EOMI NECK: No JVD No Bruit CHEST: CTA B/L CVS; S1S2 R mo m/g/r ABD: s/p surgery , incision clr=rachelle, + distention , mild epigastric tenderness No rebound Bs + EXT: No edema feet, no calf tenderness CONTRACT ADMINISTRATOR: AOx3 non focal Labs: CBC, BMP 04/29/17 06:30 INR, PTT INR 1.18 (0.82-1.09) H 04/21/17 20:00 Problem List - Problems (1) Pancreatitis Assessment/Plan: Improving F/U Lipase level Code(s): K85.90 - ACUTE PANCREATITIS WITHOUT NECROSIS OR INFECTION, UNSP Qualifiers: Chronicity: acute (2) JOSELITO (acute kidney injury) Assessment/Plan: Improved Due to dehydration F/U BMP Code(s): N17.9 - ACUTE KIDNEY FAILURE, UNSPECIFIED (3) Regional enteritis of jejunum Assessment/Plan: No fevfer normal TWBC s/p laproscopic EL, minimal distention and abd pain. (4) HTN (hypertension) Assessment/Plan: Well controlledChronic Hemodynamically stable Code(s): I10 - ESSENTIAL (PRIMARY) HYPERTENSION (5) SBO (small bowel obstruction) Assessment/Plan: recurrent Partial SBO developed distention underwent exploratory laprotomy no obvious lesion. Code(s): K56.69 - OTHER INTESTINAL OBSTRUCTION (6) Nausea & vomiting Assessment/Plan: Due to acute Pancreatitis improving cont pepsisd , zofran.. Code(s): R11.2 - NAUSEA WITH VOMITING, UNSPECIFIED (7) T2DM (type 2 diabetes mellitus) Assessment/Plan: F/U accucheck and correction dose Insulin Code(s): E11.9 - TYPE 2 DIABETES MELLITUS WITHOUT COMPLICATIONS
[2017-04-29] MEDS ORDERED: PT OWN MED DRAWER 7, Y5N ONE (09:54)
[2017-04-29] MEDS: FAMOTIDINE 20 MG/50 ML IVPB 50 ML IVPB SCH ×2 (09:57→21:05)
[2017-04-29 10:23] LABS: PLATELET COMMENT2 NO CLUMPING NOTED; PLATELET ESTIMATE ADEQUATE (NORMAL); TOTAL CELLS COUNTED 100
[2017-04-29 10:24] LABS: METAMYELOCYTE 3 % (0-2)
[2017-04-29] MEDS: ONDANSETRON 4 MG/2 ML VIAL IVPB PRN ×2 (10:39→18:44)
--- NOTE | 2017-04-29 14:03 | PN ---
Progress Note, Physician History of Present Illness: S/P laparostomy for nonmechanical small bowel obstruction with ? enteritis. Feels better , he says he has had a bowel move,ent , bur as per his nurse he is only passing flatus. Abdomen is soft. NG drainage 400 ml today. Will clamp NG tube , and measure residue. Hypoalbuminemia. Patient is started on Clinimix. - Current Medication List Current Medications: Active Medications Famotidine/Sodium Chloride (Pepcid 20 Mg Premixed Ivpb -) 50 mls @ 100 mls/hr IVPB BID [facility] Last Admin: 04/29/17 09:57 Dose: 100 mls/hr Sodium Chloride (Normal Saline -) 1,000 mls @ 75 mls/hr IV ASDIR [facility] Last Admin: 04/28/17 17:23 Dose: 75 mls/hr Amino Acids (Clinimix -) 1,000 mls @ 84 mls/hr IV Q12H [facility] Last Admin: 04/29/17 07:55 Dose: 84 mls/hr Insulin Aspart (Novolog Vial Sliding Scale -) 1 vial SQ TIDAC [facility] PRN Reason: Protocol Last Admin: 04/29/17 11:26 Dose: Not Given Morphine Sulfate (Morphine Injection -) 2 mg IVPUSH Q3H PRN PRN Reason: PAIN Last Admin: 04/29/17 03:41 Dose: 2 mg Ondansetron HCl (Zofran Injection) 4 mg IVPB Q6H PRN PRN Reason: NAUSEA AND/OR VOMITING Last Admin: 04/29/17 10:39 Dose: 4 mg - Objective Vital Signs: Vital Signs Temperature 98.2 F 04/29/17 09:00 Pulse Rate 106 H 04/29/17 09:00 Respiratory Rate 22 04/29/17 09:00 Blood Pressure 151/93 04/29/17 09:00 O2 Sat by Pulse Oximetry (%) 96 04/28/17 21:00 Labs: CBC, BMP 04/29/17 06:30 04/29/17 06:30 INR, PTT INR 1.18 (0.82-1.09) H 04/21/17 20:00 Problem List - Problems (1) Abdominal pain Code(s): R10.9 - UNSPECIFIED ABDOMINAL PAIN Qualifiers: Abdominal location: periumbilical Qualified Code(s): R10.33 - Periumbilical pain (2) Vomiting Code(s): R11.10 - VOMITING, UNSPECIFIED Qualifiers: Vomiting type: unspecified (3) Elevated lipase Code(s): R74.8 - ABNORMAL LEVELS OF OTHER SERUM ENZYMES (4) Pancreatitis Code(s): K85.90 - ACUTE PANCREATITIS WITHOUT NECROSIS OR INFECTION, UNSP Qualifiers: Chronicity: acute (5) SBO (small bowel obstruction) Code(s): K56.69 - OTHER INTESTINAL OBSTRUCTION (6) HTN (hypertension) Code(s): I10 - ESSENTIAL (PRIMARY) HYPERTENSION (7) T2DM (type 2 diabetes mellitus) Code(s): E11.9 - TYPE 2 DIABETES MELLITUS WITHOUT COMPLICATIONS
--- NOTE | 2017-04-29 15:28 | PN ---
GI Progress Note Subjective: GASTROENTEROLOGY (FOR [facility]LIN) HAVING BM AND PASSING FLATUS NGT CLAMPED PER SURGERY - Objective Vital Signs: Vital Signs Temperature 98.2 F 04/29/17 09:00 Pulse Rate 106 H 04/29/17 09:00 Respiratory Rate 22 04/29/17 09:00 Blood Pressure 151/93 04/29/17 09:00 O2 Sat by Pulse Oximetry (%) 96 04/28/17 21:00 Constitutional: No Distress Eyes: Yes: Conjunctiva Clear HENT: Yes: Atraumatic Neck: Yes: Supple Cardiovascular: Yes: Regular Rate and Rhythm Respiratory: Yes: Regular Gastrointestinal Inspection: Yes: WNL ...Auscultate: Yes: Hypoactive Bowel Sounds ...Palpate: Yes: Soft, Other (SCARS CLE[employer]) Extremities: Yes: WNL Labs: CBC, BMP 04/29/17 06:30 04/29/17 06:30 INR, PTT INR 1.18 (0.82-1.09) H 04/21/17 20:00 Problem List - Problems (1) SBO (small bowel obstruction) Assessment/Plan: ENTERITIS?? POST OP CARE PER SURGERY IF SYMPTOMS CONTINUE CONSIDER ENTEROSCOPY OR ENTEROPGRAPHY DR CARLISLE TO RETURN ON MONDAY ADILIA THOMAS MD Code(s): K56.69 - OTHER INTESTINAL OBSTRUCTION
[2017-04-29] MEDS: SODIUM CHLORIDE 1,000 ML IV SCH (17:17)
[2017-04-30] MEDS: ONDANSETRON 4 MG/2 ML VIAL IVPB PRN ×2 (01:36→17:22)
[2017-04-30] MEDS: morphine CARPU-JECT 2 MG/1 ML DISP.SYRIN IVPUSH PRN (01:36)
[2017-04-30] MEDS: INSULIN SLIDING SCALE (NOVOLOG) 1 VIAL SQ SCH ×3 (06:30→16:55)
[2017-04-30] MEDS: AMINO ACIDS 4.25%/D5W 1,000 ML IV SCH ×3 (06:30→19:15)
[2017-04-30 07:39] LABS: MCH 31.8 pg (25.7-33.7); MCHC 33.8 g/dl (32.0-35.9); MEAN CELL VOLUME 94.1 fl (80-96); MEAN PLT VOLUME 8.4 fl (7.5-11.1); PLATELET COUNT 332 K/MM3 (134-434); RDW 14.7 % (11.9-15.9); WHITE BLOOD COUNT 8.8 K/mm3 (4.0-10.0)
[2017-04-30 08:18] LABS: ALBUMIN 1.2 g/dl (3.4-5.0); ANION GAP 8 (8-16); CO2 26 mmol/L (21-32); CREATININE 0.9 mg/dL (0.7-1.3); GLUCOSE,RANDOM 177 mg/dL (74-106); SGOT/AST 29 U/L (15-37); SGPT/ALT 40 U/L (12-78)
[2017-04-30 08:20] LABS: ALK PHOS 82 U/L (45-117); BILIRUBIN,TOTAL 0.6 mg/dL (0.2-1.0); CALCIUM 7.3 mg/dL (8.5-10.1); TOT PROT 4.3 g/dl (6.4-8.2)
[2017-04-30] MEDS ORDERED: PT OWN MED DRAWER 7, Y5N ONE (09:15)
[2017-04-30] MEDS: FAMOTIDINE 20 MG/50 ML IVPB 50 ML IVPB SCH ×2 (09:21→21:16)
[2017-04-30 09:37] LABS: PLATELET ESTIMATE ADEQUATE (NORMAL)
[2017-04-30 09:38] LABS: PLATELET COMMENT2 NO CLUMPING NOTED; PLATELET COMMENT3 FEW LARGE PLTS
[2017-04-30 09:39] LABS: METAMYELOCYTE 4 % (0-2); NUCLEATED RED BLOOD CELL 2 % (0-0); SMUDGE CELLS FEW; TOTAL CELLS COUNTED 100
--- NOTE | 2017-04-30 12:18 | PN ---
Progress Note, Physician History of Present Illness: S/P laparotomy for nonobstructive intestinal, obstruction. - Current Medication List Current Medications: Active Medications Famotidine/Sodium Chloride (Pepcid 20 Mg Premixed Ivpb -) 50 mls @ 100 mls/hr IVPB BID [facility] Last Admin: 04/30/17 09:21 Dose: 100 mls/hr Amino Acids (Clinimix -) 1,000 mls @ 84 mls/hr IV Q12H [facility] Last Admin: 04/30/17 08:55 Dose: 84 mls/hr Potassium Chloride (Potassium Chloride 10 Meq Premix Ivpb -) 100 mls @ 100 mls/ hr IVPB Q1H [facility] Stop: 04/30/17 14:59 Insulin Aspart (Novolog Vial Sliding Scale -) 1 vial SQ TIDAC [facility] PRN Reason: Protocol Last Admin: 04/30/17 11:24 Dose: 2 unit Morphine Sulfate (Morphine Injection -) 2 mg IVPUSH Q3H PRN PRN Reason: PAIN Last Admin: 04/30/17 01:36 Dose: 2 mg Ondansetron HCl (Zofran Injection) 4 mg IVPB Q6H PRN PRN Reason: NAUSEA AND/OR VOMITING Last Admin: 04/30/17 01:36 Dose: 4 mg - Objective Vital Signs: Vital Signs Temperature 99.5 F 04/30/17 08:30 Pulse Rate 107 H 04/30/17 08:30 Respiratory Rate 18 04/30/17 08:30 Blood Pressure 136/72 04/30/17 08:30 O2 Sat by Pulse Oximetry (%) 96 04/29/17 21:00 Labs: CBC, BMP 04/30/17 06:30 04/30/17 06:30 INR, PTT INR 1.18 (0.82-1.09) H 04/21/17 20:00 Problem List - Problems (1) Abdominal pain Code(s): R10.9 - UNSPECIFIED ABDOMINAL PAIN Qualifiers: Abdominal location: periumbilical Qualified Code(s): R10.33 - Periumbilical pain (2) Vomiting Code(s): R11.10 - VOMITING, UNSPECIFIED Qualifiers: Vomiting type: unspecified (3) Elevated lipase Code(s): R74.8 - ABNORMAL LEVELS OF OTHER SERUM ENZYMES (4) Pancreatitis Code(s): K85.90 - ACUTE PANCREATITIS WITHOUT NECROSIS OR INFECTION, UNSP Qualifiers: Chronicity: acute (5) SBO (small bowel obstruction) Code(s): K56.69 - OTHER INTESTINAL OBSTRUCTION (6) HTN (hypertension) Code(s): I10 - ESSENTIAL (PRIMARY) HYPERTENSION (7) T2DM (type 2 diabetes mellitus) Code(s): E11.9 - TYPE 2 DIABETES MELLITUS WITHOUT COMPLICATIONS Assessment/Plan Abdomen is soft , not tender, Wound is clean, no infection. T max 100, Ng drainage 600ml. Will clamp NG tube. Out of bed. Low albumen, continue clinimix.
[2017-04-30] MEDS ORDERED: ACETAMINOPHEN 1000 MG/100 ML VIAL (NON FORMULARY) IVPB PRN (12:20)
--- NOTE | 2017-04-30 14:30 | PN ---
Progress Note, Physician Chief Complaint: Less abd pain ,underwent exploratory laprotomy day 3rd History of Present Illness: 67 yrs old man admitted with nausea, vomiting diarrhea, CT shows acute pancreatitis - Current Medication List Current Medications: Active Medications Acetaminophen (Ofirmev Injection -) 1,000 mg IVPB Q6H PRN PRN Reason: PAIN LEVEL 6-10 Stop: 05/01/17 06:21 Famotidine/Sodium Chloride (Pepcid 20 Mg Premixed Ivpb -) 50 mls @ 100 mls/hr IVPB BID [facility] Last Admin: 04/30/17 09:21 Dose: 100 mls/hr Amino Acids (Clinimix -) 1,000 mls @ 84 mls/hr IV Q12H [facility] Last Admin: 04/30/17 08:55 Dose: 84 mls/hr Potassium Chloride (Potassium Chloride 10 Meq Premix Ivpb -) 100 mls @ 100 mls/ hr IVPB Q1H [facility] Stop: 04/30/17 14:59 Insulin Aspart (Novolog Vial Sliding Scale -) 1 vial SQ TIDAC [facility] PRN Reason: Protocol Last Admin: 04/30/17 11:24 Dose: 2 unit Ondansetron HCl (Zofran Injection) 4 mg IVPB Q6H PRN PRN Reason: NAUSEA AND/OR VOMITING Last Admin: 04/30/17 01:36 Dose: 4 mg - Objective Vital Signs: Vital Signs Temperature 99.5 F 04/30/17 08:30 Pulse Rate 107 H 04/30/17 08:30 Respiratory Rate 18 04/30/17 08:30 Blood Pressure 136/72 04/30/17 08:30 O2 Sat by Pulse Oximetry (%) 96 04/29/17 21:00 Elderly man looks comfortable not in distress HEENT: mm moist no anemia, PERRLA EOMI NECK: No JVD No Bruit CHEST: CTA B/L CVS; S1S2 R mo m/g/r ABD: S/p surgery diffuse tenderness , mild distention , mild epigastric tenderness No rebound Bs + EXT: No edema feet, no calf tenderness FIELD OBSERVER: AOx3 non focal Labs: CBC, BMP 04/30/17 06:30 04/30/17 06:30 INR, PTT INR 1.18 (0.82-1.09) H 04/21/17 20:00 Problem List - Problems (1) Pancreatitis Assessment/Plan: Improving F/U Lipase level Code(s): K85.90 - ACUTE PANCREATITIS WITHOUT NECROSIS OR INFECTION, UNSP Qualifiers: Chronicity: acute (2) JOSELITO (acute kidney injury) Assessment/Plan: Improved Due to dehydration F/U BMP Code(s): N17.9 - ACUTE KIDNEY FAILURE, UNSPECIFIED (3) Regional enteritis of jejunum Assessment/Plan: No fevfer normal TWBC s/p laproscopic EL, minimal distention and abd pain. (4) HTN (hypertension) Assessment/Plan: Well controlledChronic Hemodynamically stable Code(s): I10 - ESSENTIAL (PRIMARY) HYPERTENSION (5) SBO (small bowel obstruction) Assessment/Plan: recurrent Partial SBO developed distention underwent exploratory laprotomy no obvious lesion. Code(s): K56.69 - OTHER INTESTINAL OBSTRUCTION (6) Nausea & vomiting Assessment/Plan: Due to acute Pancreatitis improving cont pepsisd , zofran.. Code(s): R11.2 - NAUSEA WITH VOMITING, UNSPECIFIED (7) T2DM (type 2 diabetes mellitus) Assessment/Plan: F/U accucheck and correction dose Insulin Code(s): E11.9 - TYPE 2 DIABETES MELLITUS WITHOUT COMPLICATIONS
[2017-04-30] MEDS: KCL 10 MEQ IVPB 100 ML IVPB SCH ×3 (14:35→17:21)
[2017-04-30] MEDS: ACETAMINOPHEN 1000 MG/100 ML VIAL (NON FORMULARY) IVPB PRN (16:38)
[2017-05-01] MEDS ORDERED: PT OWN MED DRAWER 7, Y5N ONE ×3 (02:56→22:32)
[2017-05-01] MEDS: ACETAMINOPHEN 1000 MG/100 ML VIAL (NON FORMULARY) IVPB PRN (03:38)
[2017-05-01] MEDS: AMINO ACIDS 4.25%/D5W 1,000 ML IV SCH ×3 (06:09→18:24)
[2017-05-01] MEDS: INSULIN SLIDING SCALE (NOVOLOG) 1 VIAL SQ SCH ×3 (06:42→17:21)
--- NOTE | 2017-05-01 09:12 | PN ---
Progress Note, Physician Chief Complaint: feels improved Less abd pain , less nausea BM this am. History of Present Illness: 67 yrs old man admitted with nausea, vomiting diarrhea, CT shows acute pancreatitis, - Current Medication List Current Medications: Active Medications Famotidine/Sodium Chloride (Pepcid 20 Mg Premixed Ivpb -) 50 mls @ 100 mls/hr IVPB BID [facility] Last Admin: 04/30/17 21:16 Dose: 100 mls/hr Amino Acids (Clinimix -) 1,000 mls @ 84 mls/hr IV Q12H [facility] Last Admin: 05/01/17 06:09 Dose: Not Given Insulin Aspart (Novolog Vial Sliding Scale -) 1 vial SQ TIDAC [facility] PRN Reason: Protocol Last Admin: 05/01/17 06:42 Dose: Not Given Ondansetron HCl (Zofran Injection) 4 mg IVPB Q6H PRN PRN Reason: NAUSEA AND/OR VOMITING Last Admin: 04/30/17 17:22 Dose: 4 mg - Objective Vital Signs: Vital Signs Temperature 99.5 F 05/01/17 07:35 Pulse Rate 108 H 05/01/17 07:35 Respiratory Rate 20 05/01/17 07:35 Blood Pressure 139/74 05/01/17 07:35 O2 Sat by Pulse Oximetry (%) 96 04/30/17 21:00 Elderly man looks comfortable not in distress HEENT: mm moist no anemia, PERRLA EOMI NECK: No JVD No Bruit CHEST: CTA B/L CVS; S1S2 R mo m/g/r ABD: + distention , mild epigastric tenderness No rebound Bs + EXT: No edema feet, no calf tenderness LATENT PRINT EXAMINER: AOx3 non focal Labs: CBC, BMP 04/30/17 06:30 04/30/17 06:30 INR, PTT INR 1.18 (0.82-1.09) H 04/21/17 20:00 Problem List - Problems (1) Pancreatitis Code(s): K85.90 - ACUTE PANCREATITIS WITHOUT NECROSIS OR INFECTION, UNSP Qualifiers: Chronicity: acute (2) JOSELITO (acute kidney injury) Code(s): N17.9 - ACUTE KIDNEY FAILURE, UNSPECIFIED (3) Regional enteritis of jejunum (4) HTN (hypertension) Code(s): I10 - ESSENTIAL (PRIMARY) HYPERTENSION (5) SBO (small bowel obstruction) Code(s): K56.69 - OTHER INTESTINAL OBSTRUCTION (6) Nausea & vomiting Code(s): R11.2 - NAUSEA WITH VOMITING, UNSPECIFIED (7) T2DM (type 2 diabetes mellitus) Code(s): E11.9 - TYPE 2 DIABETES MELLITUS WITHOUT COMPLICATIONS
[2017-05-01] MEDS: FAMOTIDINE 20 MG/50 ML IVPB 50 ML IVPB SCH ×2 (09:25→21:09)
--- NOTE | 2017-05-01 09:59 | PN ---
Progress Note, Physician - Current Medication List Current Medications: Active Medications Famotidine/Sodium Chloride (Pepcid 20 Mg Premixed Ivpb -) 50 mls @ 100 mls/hr IVPB BID [facility] Last Admin: 05/01/17 09:25 Dose: 100 mls/hr Amino Acids (Clinimix -) 1,000 mls @ 84 mls/hr IV Q12H [facility] Last Admin: 05/01/17 06:09 Dose: Not Given Insulin Aspart (Novolog Vial Sliding Scale -) 1 vial SQ TIDAC [facility] PRN Reason: Protocol Last Admin: 05/01/17 06:42 Dose: Not Given Ondansetron HCl (Zofran Injection) 4 mg IVPB Q6H PRN PRN Reason: NAUSEA AND/OR VOMITING Last Admin: 04/30/17 17:22 Dose: 4 mg - Objective Vital Signs: Vital Signs Temperature 99.5 F 05/01/17 07:35 Pulse Rate 108 H 05/01/17 07:35 Respiratory Rate 20 05/01/17 07:35 Blood Pressure 139/74 05/01/17 07:35 O2 Sat by Pulse Oximetry (%) 96 04/30/17 21:00 Labs: CBC, BMP 04/30/17 06:30 04/30/17 06:30 INR, PTT INR 1.18 (0.82-1.09) H 04/21/17 20:00 Problem List - Problems (1) Abdominal pain Code(s): R10.9 - UNSPECIFIED ABDOMINAL PAIN Qualifiers: Abdominal location: periumbilical Qualified Code(s): R10.33 - Periumbilical pain (2) Vomiting Code(s): R11.10 - VOMITING, UNSPECIFIED Qualifiers: Vomiting type: unspecified (3) Elevated lipase Code(s): R74.8 - ABNORMAL LEVELS OF OTHER SERUM ENZYMES (4) Pancreatitis Code(s): K85.90 - ACUTE PANCREATITIS WITHOUT NECROSIS OR INFECTION, UNSP Qualifiers: Chronicity: acute (5) SBO (small bowel obstruction) Code(s): K56.69 - OTHER INTESTINAL OBSTRUCTION (6) HTN (hypertension) Code(s): I10 - ESSENTIAL (PRIMARY) HYPERTENSION (7) T2DM (type 2 diabetes mellitus) Code(s): E11.9 - TYPE 2 DIABETES MELLITUS WITHOUT COMPLICATIONS Assessment/Plan Abdomen is soft , not tender, Wound is clean, no infection. Twmp : normal. WBC is normal, Will remove NG tube, resume oral feeding. Liquids by mouth. Low albumen, continue clinimix.
[2017-05-01 10:51] LABS: MCH 31.6 pg (25.7-33.7); MCHC 33.6 g/dl (32.0-35.9); MEAN CELL VOLUME 93.9 fl (80-96); MEAN PLT VOLUME 8.7 fl (7.5-11.1); PLATELET COUNT 346 K/MM3 (134-434); RDW 14.8 % (11.9-15.9)
[2017-05-01 11:23] LABS: ALBUMIN 1.2 g/dl (3.4-5.0); ANION GAP 9 (8-16); BILIRUBIN,TOTAL 0.8 mg/dL (0.2-1.0); CALCIUM 7.3 mg/dL (8.5-10.1); CO2 26 mmol/L (21-32); GLUCOSE,RANDOM 179 mg/dL (74-106); SGOT/AST 60 U/L (15-37); SGPT/ALT 66 U/L (12-78); TOT PROT 4.5 g/dl (6.4-8.2)
[2017-05-01 11:24] LABS: ALK PHOS 116 U/L (45-117); CREATININE 0.9 mg/dL (0.7-1.3)
--- NOTE | 2017-05-01 12:47 | PN ---
GI Progress Note Subjective: Overall states feeling better with improved abdominal pain + BM's / flatus No vomiting - Objective Vital Signs: Vital Signs Temperature 98.2 F 05/01/17 09:00 Pulse Rate 102 H 05/01/17 09:00 Respiratory Rate 18 05/01/17 09:00 Blood Pressure 138/73 05/01/17 09:00 O2 Sat by Pulse Oximetry (%) 96 04/30/17 21:00 Constitutional: Calm Eyes: No: Sclera Icterus Cardiovascular: Yes: Regular Rate and Rhythm Respiratory: Yes: CTA Bilaterally Gastrointestinal Inspection: Yes: Distention (Mildly protuberant abdomen), Scars (+ surgical scar with caprice in place) ...Auscultate: Yes: Normoactive Bowel Sounds ...Palpate: No: Tenderness ...Percussion: No: Tympanitic Edema: No Neurological: Yes: Alert, Oriented Labs: CBC, BMP 05/01/17 10:10 05/01/17 10:10 INR, PTT INR 1.18 (0.82-1.09) H 04/21/17 20:00 Problem List - Problems (1) Abdominal pain Assessment/Plan: ? resolved PSBO vs. enteritis: Much improved and tolerating PO. Advancing diet as per surgery and on supplemental clinimix Code(s): R10.9 - UNSPECIFIED ABDOMINAL PAIN Qualifiers: Abdominal location: periumbilical Qualified Code(s): R10.33 - Periumbilical pain
[2017-05-01 13:01] LABS: MYELOCYTE 1 % (0-2); PLATELET ESTIMATE ADEQUATE (NORMAL); TOTAL CELLS COUNTED 100
[2017-05-01] MEDS ORDERED: ACETAMINOPHEN 325 MG TABLET (FP) PO PRN (16:07)
[2017-05-01] MEDS: ONDANSETRON 4 MG/2 ML VIAL IVPB PRN (16:27)
[2017-05-02] MEDS: ONDANSETRON 4 MG/2 ML VIAL IVPB PRN (02:30)
[2017-05-02] MEDS ORDERED: INSULIN (NOVOLOG) ASPART 100 UNITS/ML 10ML VIAL ONE ×2 (06:41→07:10)
[2017-05-02] MEDS: INSULIN SLIDING SCALE (NOVOLOG) 1 VIAL SQ SCH ×3 (06:43→16:42)
[2017-05-02] MEDS: AMINO ACIDS 4.25%/D5W 1,000 ML IV SCH ×3 (06:43→20:31)
[2017-05-02 07:24] LABS: MCH 31.5 pg (25.7-33.7); MCHC 33.6 g/dl (32.0-35.9); MEAN CELL VOLUME 93.9 fl (80-96); MEAN PLT VOLUME 8.6 fl (7.5-11.1); PLATELET COUNT 376 K/MM3 (134-434); WHITE BLOOD COUNT 7.6 K/mm3 (4.0-10.0)
[2017-05-02 07:56] LABS: ALBUMIN 1.3 g/dl (3.4-5.0)
[2017-05-02 08:02] LABS: ALK PHOS 130 U/L (45-117); ANION GAP 10 (8-16); BILIRUBIN,TOTAL 0.7 mg/dL (0.2-1.0); CALCIUM 7.6 mg/dL (8.5-10.1); CO2 24 mmol/L (21-32); CREATININE 0.8 mg/dL (0.7-1.3); GLUCOSE,RANDOM 182 mg/dL (74-106); SGOT/AST 69 U/L (15-37); SGPT/ALT 89 U/L (12-78); TOT PROT 4.5 g/dl (6.4-8.2)
[2017-05-02] MEDS: FAMOTIDINE 20 MG/50 ML IVPB 50 ML IVPB SCH ×2 (09:01→22:24)
[2017-05-02 09:06] LABS: METAMYELOCYTE 2 % (0-2); MYELOCYTE 1 % (0-2); PLATELET ESTIMATE ADEQUATE (NORMAL); TOTAL CELLS COUNTED 100
--- NOTE | 2017-05-02 09:22 | PN ---
Progress Note, Physician Chief Complaint: Feels ,underwent exploratory laprotomy on 04/27/2017 shows no lesion, c/o less pain History of Present Illness: 67 yrs old man admitted with nausea, vomiting diarrhea, CT shows acute pancreatitis, developed recurrent SBO underwent explarotary laprotomy - Current Medication List Current Medications: Active Medications Acetaminophen (Tylenol -) 650 mg PO Q6H PRN PRN Reason: FEVER OR PAIN Hydromorphone HCl (Dilaudid Injection -) 1 mg IVPB Q6H PRN PRN Reason: PAIN Famotidine/Sodium Chloride (Pepcid 20 Mg Premixed Ivpb -) 50 mls @ 100 mls/hr IVPB BID [facility] Last Admin: 05/02/17 09:01 Dose: 100 mls/hr Amino Acids (Clinimix -) 1,000 mls @ 84 mls/hr IV Q12H [facility] Last Admin: 05/02/17 06:43 Dose: 84 mls/hr Insulin Aspart (Novolog Vial Sliding Scale -) 1 vial SQ TIDAC [facility] PRN Reason: Protocol Last Admin: 05/02/17 06:43 Dose: 2 unit Ondansetron HCl (Zofran Injection) 4 mg IVPB Q6H PRN PRN Reason: NAUSEA AND/OR VOMITING Last Admin: 05/02/17 02:30 Dose: 4 mg Potassium Chloride (Potassium Chloride Oral Liquid) 20 meq PO ONCE ONE Stop: 05/02/17 09:19 Potassium Chloride (Potassium Chloride 20 Meq Premix Ivpb -) 20 meq IVPB Q60M [facility] Stop: 05/02/17 11:31 - Objective Vital Signs: Vital Signs Temperature 99.2 F 05/02/17 06:05 Pulse Rate 112 H 05/02/17 06:05 Respiratory Rate 20 05/02/17 06:05 Blood Pressure 144/75 05/02/17 06:05 O2 Sat by Pulse Oximetry (%) 96 05/01/17 21:00 Labs: CBC, BMP 05/02/17 06:00 05/02/17 06:00 INR, PTT INR 1.18 (0.82-1.09) H 04/21/17 20:00 Problem List - Problems (1) Pancreatitis Assessment/Plan: Improving F/U Lipase level Code(s): K85.90 - ACUTE PANCREATITIS WITHOUT NECROSIS OR INFECTION, UNSP Qualifiers: Chronicity: acute (2) JOSELITO (acute kidney injury) Assessment/Plan: Improved Due to dehydration F/U BMP Code(s): N17.9 - ACUTE KIDNEY FAILURE, UNSPECIFIED (3) Regional enteritis of jejunum Assessment/Plan: No fevfer normal TWBC s/p laproscopic EL, minimal distention and abd pain. (4) HTN (hypertension) Assessment/Plan: Well controlledChronic Hemodynamically stable Code(s): I10 - ESSENTIAL (PRIMARY) HYPERTENSION (5) SBO (small bowel obstruction) Assessment/Plan: recurrent Partial SBO developed distention underwent exploratory laprotomy no obvious lesion. Code(s): K56.69 - OTHER INTESTINAL OBSTRUCTION (6) Nausea & vomiting Assessment/Plan: Due to acute Pancreatitis improving cont pepsisd , zofran.. Code(s): R11.2 - NAUSEA WITH VOMITING, UNSPECIFIED (7) T2DM (type 2 diabetes mellitus) Assessment/Plan: F/U accucheck and correction dose Insulin Code(s): E11.9 - TYPE 2 DIABETES MELLITUS WITHOUT COMPLICATIONS (8) Hypokalemia Assessment/Plan: repleted /Mag level Code(s): E87.6 - HYPOKALEMIA
--- NOTE | 2017-05-02 09:32 | PN ---
Progress Note, Physician - Current Medication List Current Medications: Active Medications Acetaminophen (Tylenol -) 650 mg PO Q6H PRN PRN Reason: FEVER OR PAIN Hydromorphone HCl (Dilaudid Injection -) 1 mg IVPB Q6H PRN PRN Reason: PAIN Famotidine/Sodium Chloride (Pepcid 20 Mg Premixed Ivpb -) 50 mls @ 100 mls/hr IVPB BID [facility] Last Admin: 05/02/17 09:01 Dose: 100 mls/hr Amino Acids (Clinimix -) 1,000 mls @ 84 mls/hr IV Q12H [facility] Last Admin: 05/02/17 06:43 Dose: 84 mls/hr Insulin Aspart (Novolog Vial Sliding Scale -) 1 vial SQ TIDAC [facility] PRN Reason: Protocol Last Admin: 05/02/17 06:43 Dose: 2 unit Ondansetron HCl (Zofran Injection) 4 mg IVPB Q6H PRN PRN Reason: NAUSEA AND/OR VOMITING Last Admin: 05/02/17 02:30 Dose: 4 mg Potassium Chloride (Potassium Chloride Oral Liquid) 20 meq PO ONCE ONE Stop: 05/02/17 09:19 Potassium Chloride (Potassium Chloride 20 Meq Premix Ivpb -) 20 meq IVPB Q60M [facility] Stop: 05/02/17 11:31 - Objective Vital Signs: Vital Signs Temperature 99.2 F 05/02/17 06:05 Pulse Rate 112 H 05/02/17 06:05 Respiratory Rate 20 05/02/17 06:05 Blood Pressure 144/75 05/02/17 06:05 O2 Sat by Pulse Oximetry (%) 96 05/01/17 21:00 Labs: CBC, BMP 05/02/17 06:00 05/02/17 06:00 INR, PTT INR 1.18 (0.82-1.09) H 04/21/17 20:00 Problem List - Problems (1) Abdominal pain Code(s): R10.9 - UNSPECIFIED ABDOMINAL PAIN Qualifiers: Abdominal location: periumbilical Qualified Code(s): R10.33 - Periumbilical pain (2) Vomiting Code(s): R11.10 - VOMITING, UNSPECIFIED Qualifiers: Vomiting type: unspecified (3) Elevated lipase Code(s): R74.8 - ABNORMAL LEVELS OF OTHER SERUM ENZYMES (4) Pancreatitis Code(s): K85.90 - ACUTE PANCREATITIS WITHOUT NECROSIS OR INFECTION, UNSP Qualifiers: Chronicity: acute (5) SBO (small bowel obstruction) Code(s): K56.69 - OTHER INTESTINAL OBSTRUCTION (6) HTN (hypertension) Code(s): I10 - ESSENTIAL (PRIMARY) HYPERTENSION (7) T2DM (type 2 diabetes mellitus) Code(s): E11.9 - TYPE 2 DIABETES MELLITUS WITHOUT COMPLICATIONS Assessment/Plan Surgery: Patient is tolerating liquids. no nausea, no vomiting, no abdominal distention. Has had bowel movements. Will progress diet, discharge when overall improved. Hypoalbuminemia, severe malnutrition. Albumin 1.3 gms Intestinal obstruction , ? secondary to enteritis, ? etiology. Progress diet.
[2017-05-02] MEDS ORDERED: POTASSIUM CHLORIDE ORAL LIQUID 20 MEQ/15 ML PO ONE (10:15)
[2017-05-02] MEDS: HYDROmorphone HCL CARPU-JECT 1 MG/1 ML DISP.SYRIN IVPB PRN ×2 (10:36→20:34)
[2017-05-02 11:21] LABS: MAGNESIUM 1.4 mg/dL (1.8-2.4)
[2017-05-02] MEDS: POTASSIUM CHLORIDE 20 MEQ PREMIX IVPB 100 ML IVPB SCH (13:14)
[2017-05-02] MEDS: KCL 10 MEQ IVPB 100 ML IVPB SCH ×3 (13:19→17:21)
[2017-05-02 15:31] LABS: PHOSPHOROUS 2.3 mg/dL (2.5-4.9)
[2017-05-03] MEDS: HYDROmorphone HCL CARPU-JECT 1 MG/1 ML DISP.SYRIN IVPB PRN (05:02)
[2017-05-03] MEDS: INSULIN SLIDING SCALE (NOVOLOG) 1 VIAL SQ SCH ×2 (06:45→12:18)
[2017-05-03] MEDS: AMINO ACIDS 4.25%/D5W 1,000 ML IV SCH (06:48)
[2017-05-03] MEDS ORDERED: METOCLOPRAMIDE HCL 10 MG TABLET (FP) PO PRN (08:26)
--- NOTE | 2017-05-03 08:37 | DS ---
Physical Examination Vital Signs: Vital Signs Temperature 99 F 05/03/17 06:21 Pulse Rate 122 H 05/03/17 06:21 Respiratory Rate 20 05/03/17 06:21 Blood Pressure 103/67 05/03/17 06:21 O2 Sat by Pulse Oximetry (%) 96 05/02/17 21:00 Labs: CBC, BMP 05/02/17 06:00 Discharge Summary Reason For Visit: MILD RENAL INSUFFICIENCY,PANCREATITIS,ABDOMINAL Current Active Problems JOSELITO (acute kidney injury) (Acute) Abdominal pain (Acute) Elevated lipase (Acute) HTN (hypertension) (Acute) Hypokalemia (Acute) Nausea & vomiting (Acute) Pancreatitis (Acute) Regional enteritis of jejunum (Acute) Renal insufficiency, mild (Acute) SBO (small bowel obstruction) (Acute) T2DM (type 2 diabetes mellitus) (Acute) Vomiting (Acute) Condition: Guarded - Instructions Referrals: Theresa Kenny MD [Primary Care Provider] - 1 Week Frandy Ramos DO [Staff Physician] - 1 Week Lani Parmar MD [Staff Physician] - 1 Week Disposition: VNS/HOME HEALTH CARE - Home Medications Comprehensive Discharge Medication List: Ambulatory Orders Amlodipine Besylate 10 mg PO DAILY 04/21/17 Levothyroxine Sodium [Synthroid] 0 mcg PO DAILY 04/21/17 Linaclotide [Linzess] 72 mcg PO DAILY 04/21/17 Simvastatin [Zocor -] 10 mg PO HS 04/21/17 Acetaminophen [Tylenol .Regular Strength -] 650 mg PO Q6H PRN #30 tablet Glimepiride [Glimepiride -] 1 mg PO DAILY@0700 #30 tablet 05/03/17 Metoclopramide HCl [Reglan -] 10 mg PO TIDAC PRN #60 tablet 05/03/17 Oxycodone HCl/Acetaminophen [Percocet 5-325 mg Tablet] 1 tab PO Q4H #20 tablet MDD 4 05/03/17 Pantoprazole Sodium [Protonix -] 20 mg PO DAILY #30 cap 05/03/17
[2017-05-03 09:01] LABS: ALBUMIN 1.2 g/dl (3.4-5.0); ANION GAP 8 (8-16); BILIRUBIN,TOTAL 0.8 mg/dL (0.2-1.0); CALCIUM 7.2 mg/dL (8.5-10.1); CO2 25 mmol/L (21-32); CREATININE 0.9 mg/dL (0.7-1.3); GLUCOSE,RANDOM 180 mg/dL (74-106); SGOT/AST 63 U/L (15-37); SGPT/ALT 93 U/L (12-78); TOT PROT 4.4 g/dl (6.4-8.2)
[2017-05-03 09:02] LABS: ALK PHOS 157 U/L (45-117)
[2017-05-03] MEDS ORDERED: PANTOPRAZOLE 20 MG TABLET (FP) PO SCH (10:00)
[2017-05-03 13:03] VITALS: BP 136/70; PULSE 100; TEMP 99
[2017-05-04] MEDS ORDERED: GLIMEPIRIDE 1 MG TABLET (FP) PO SCH (07:00)
== END 2017-05-03 11:15 | disposition home health service (06) | DRG 420 ==
LOC: JER 17:22 → JERBED 04-22 01:19 → J4S 04-22 05:07 → J8W 04-23 21:35
PROVIDERS: ADMIT Internal Medicine; ATTEND Internal Medicine
PROC: 0D9670Z Drainage of Stomach with Drainage Device, Via Natural or Artificial Opening (ICD-10-PCS; 2017-04-24)
PROC: 0DJD4ZZ Inspection of Lower Intestinal Tract, Percutaneous Endoscopic Approach (ICD-10-PCS; 2017-04-27)
PROC: 0WJP0ZZ Inspection of Gastrointestinal Tract, Open Approach (ICD-10-PCS; principal; 2017-04-27 13:00)
DX: K85.90 Acute pancreatitis without necrosis or infection, unspecified (principal); E43 Unspecified severe protein-calorie malnutrition; K56.60 Unspecified intestinal obstruction; N17.9 Acute kidney failure, unspecified; K50.00 Crohn's disease of small intestine without complications; K56.7 Ileus, unspecified; I10 Essential (primary) hypertension; E78.5 Hyperlipidemia, unspecified; E03.9 Hypothyroidism, unspecified; E11.9 Type 2 diabetes mellitus without complications; E86.0 Dehydration; Z53.31 Laparoscopic surgical procedure converted to open procedure; E88.09 Other disorders of plasma-protein metabolism, not elsewhere classified; E87.6 Hypokalemia; Z68.26 Body mass index [BMI] 26.0-26.9, adult
CPT/HCPCS: 36415; 71010-TC; 71020-TC; 74000-TC; 74020-TC; 74176-TC; 74177-TC; 76705-TC; 80048; 80053; 80061; 82150; 83516; 83605; 83690; 83721; 83735; 84100; 84443; 85025; 85027; 85610; 86850; 86900; 86901; 87040; 87070; 87075; 87205; 90670; 93005; 93010; 94760; 99283-25

== ENCOUNTER 2020-09-10 11:32 | Inpatient (IN) | payer OTHER ==
[2020-09-10 14:46] LABS: INR 1.2 (0.83-1.09); PROTHROMBIN TIME (PATIENT) 14.5 SEC (9.7-13.0)
[2020-09-10 14:56] LABS: CHLORIDE 89 mmol/L (98-107); SODIUM 135 mmol/L (136-145)
[2020-09-10 14:58] LABS: CALCIUM 9.1 mg/dL (8.5-10.1)
[2020-09-10 14:59] LABS: ALBUMIN 3.6 g/dl (3.4-5.0); BLOOD UREA NITROGEN 40.1 mg/dL (7-18); CO2 35 mmol/L (21-32); GLUCOSE,RANDOM 121 mg/dL (74-106)
[2020-09-10 15:02] LABS: CREATININE 3.2 mg/dL (0.55-1.3); SGOT/AST 33 U/L (15-37); SGPT/ALT 25 U/L (13-61)
[2020-09-10 15:04] LABS: BILIRUBIN,TOTAL 0.9 mg/dL (0.2-1); TOT PROT 7.9 g/dl (6.4-8.2)
[2020-09-10 15:05] LABS: ALK PHOS 80 U/L (45-117)
[2020-09-10 15:17] LABS: ANION GAP 12 MMOL/L (8-16)
[2020-09-10 15:44] LABS: BASO % 0.4 % (0-2.0); EOS % 0.2 % (0-4.5); HEMATOCRIT 37.3 % (35.4-49); HEMOGLOBIN 12.9 GM/dL (11.7-16.9); LYMPH % 19.9 % (8-40); MCH 33.2 pg (25.7-33.7); MCHC 34.6 g/dl (32.0-35.9); MEAN CELL VOLUME 95.9 fl (80-96); MONO % 6.3 % (3.8-10.2); NEUT % 73.2 % (42.8-82.8); PLATELET COUNT 265 K/MM3 (134-434); RBC 3.89 M/mm3 (4.00-5.60); RDW 14.7 % (11.9-15.9); WHITE BLOOD COUNT 5.6 K/mm3 (4.0-10.0)
[2020-09-10 16:50] LABS: MAGNESIUM 2.2 mg/dL (1.8-2.4)
[2020-09-10 17:00] LABS: LDH 411 U/L (87-246)
[2020-09-10 19:06] LABS: CALCIUM 8.3 mg/dL (8.5-10.1)
[2020-09-10 19:07] LABS: ALBUMIN 3.1 g/dl (3.4-5.0)
[2020-09-10 19:10] LABS: CREATININE 2.4 mg/dL (0.55-1.3)
[2020-09-10 19:11] LABS: BILIRUBIN,TOTAL 0.9 mg/dL (0.2-1); TOT PROT 7.1 g/dl (6.4-8.2)
[2020-09-11 10:36] LABS: ALBUMIN 2.9 g/dl (3.4-5.0); BLOOD UREA NITROGEN 29.2 mg/dL (7-18); CALCIUM 7.9 mg/dL (8.5-10.1)
[2020-09-11 10:37] LABS: MAGNESIUM 1.7 mg/dL (1.8-2.4)
[2020-09-11 10:40] LABS: CREATININE 1.7 mg/dL (0.55-1.3)
[2020-09-11 10:41] LABS: BILIRUBIN,TOTAL 0.7 mg/dL (0.2-1); TOT PROT 6.3 g/dl (6.4-8.2)
[2020-09-12 08:39] LABS: BLOOD UREA NITROGEN 19.1 mg/dL (7-18); CALCIUM 7.9 mg/dL (8.5-10.1)
[2020-09-12 08:43] LABS: CREATININE 1.3 mg/dL (0.55-1.3)
[2020-09-12 08:49] LABS: ALBUMIN 2.7 g/dl (3.4-5.0); CALCIUM 7.9 mg/dL (8.5-10.1); MAGNESIUM 1.6 mg/dL (1.8-2.4)
[2020-09-12 08:53] LABS: CREATININE 1.2 mg/dL (0.55-1.3)
[2020-09-12 08:54] LABS: BILIRUBIN,TOTAL 1.2 mg/dL (0.2-1); TOT PROT 6.1 g/dl (6.4-8.2)
[2020-09-12 23:59] VITALS: BMI 24.7
[2020-09-13 09:25] LABS: BASO % 0.5 % (0-2.0); EOS % 2.4 % (0-4.5); HEMATOCRIT 31.6 % (35.4-49); LYMPH % 24.5 % (8-40); MCH 33.8 pg (25.7-33.7); MCHC 34.8 g/dl (32.0-35.9); MEAN CELL VOLUME 97.2 fl (80-96); MEAN PLT VOLUME 8.3 fl (7.5-11.1); MONO % 10.2 % (3.8-10.2); NEUT % 62.4 % (42.8-82.8); PLATELET COUNT 302 K/MM3 (134-434); RBC 3.25 M/mm3 (4.00-5.60); RDW 15.4 % (11.9-15.9); WHITE BLOOD COUNT 5.4 K/mm3 (4.0-10.0)
[2020-09-13 09:26] LABS: CALCIUM 8.2 mg/dL (8.5-10.1)
[2020-09-13 09:27] LABS: ALBUMIN 2.9 g/dl (3.4-5.0); BLOOD UREA NITROGEN 12.7 mg/dL (7-18); MAGNESIUM 1.5 mg/dL (1.8-2.4)
[2020-09-13 09:30] LABS: CREATININE 1.1 mg/dL (0.55-1.3)
[2020-09-13 09:31] LABS: BILIRUBIN,TOTAL 0.8 mg/dL (0.2-1)
[2020-09-13 09:32] LABS: TOT PROT 6.7 g/dl (6.4-8.2)
[2020-09-14 09:39] LABS: BASO % 0.4 % (0-2.0); EOS % 3.9 % (0-4.5); HEMATOCRIT 32.8 % (35.4-49); HEMOGLOBIN 11.5 GM/dL (11.7-16.9); LYMPH % 35.8 % (8-40); MCH 34.1 pg (25.7-33.7); MCHC 34.9 g/dl (32.0-35.9); MEAN CELL VOLUME 97.6 fl (80-96); MEAN PLT VOLUME 7.9 fl (7.5-11.1); MONO % 10.4 % (3.8-10.2); NEUT % 49.5 % (42.8-82.8); PLATELET COUNT 350 K/MM3 (134-434); RBC 3.36 M/mm3 (4.00-5.60); WHITE BLOOD COUNT 4.3 K/mm3 (4.0-10.0)
[2020-09-14 10:14] LABS: CALCIUM 8.3 mg/dL (8.5-10.1)
[2020-09-14 10:15] LABS: ALBUMIN 2.9 g/dl (3.4-5.0); BLOOD UREA NITROGEN 10.2 mg/dL (7-18); MAGNESIUM 1.5 mg/dL (1.8-2.4)
[2020-09-14 10:18] LABS: CREATININE 1.1 mg/dL (0.55-1.3)
[2020-09-14 10:20] LABS: TOT PROT 6.7 g/dl (6.4-8.2)
[2020-09-15 09:34] LABS: CALCIUM 8.7 mg/dL (8.5-10.1)
[2020-09-15 09:35] LABS: ALBUMIN 2.9 g/dl (3.4-5.0); BLOOD UREA NITROGEN 12.7 mg/dL (7-18); MAGNESIUM 1.4 mg/dL (1.8-2.4)
[2020-09-15 09:39] LABS: BILIRUBIN,TOTAL 1.2 mg/dL (0.2-1); TOT PROT 6.5 g/dl (6.4-8.2)
[2020-09-16 10:35] VITALS: BP 157/88; PULSE 82; TEMP 98.1
== END 2020-09-16 11:25 | disposition home or self-care (01) | DRG 177 ==
LOC: JER 11:32 → JERBED 16:32 → J8W 09-11 01:01 → J6S 09-15 18:17
PROVIDERS: ADMIT Internal Medicine; ATTEND Internal Medicine
PROC: XW13325 Transfusion of Convalescent Plasma (Nonautologous) into Peripheral Vein, Percutaneous Approach, New Technology Group 5 (ICD-10-PCS; principal; 2020-09-12)
PROC: 8E0ZXY6 Isolation (ICD-10-PCS; 2020-09-12)
DX: U07.1 COVID-19 (principal); J12.82 Pneumonia due to coronavirus disease 2019; N17.9 Acute kidney failure, unspecified; E11.42 Type 2 diabetes mellitus with diabetic polyneuropathy; R50.9 Fever, unspecified; I10 Essential (primary) hypertension; E78.00 Pure hypercholesterolemia, unspecified; J44.9 Chronic obstructive pulmonary disease, unspecified; E87.6 Hypokalemia; K59.09 Other constipation; E86.0 Dehydration; R63.4 Abnormal weight loss; Z68.25 Body mass index [BMI] 25.0-25.9, adult; R05 Cough; E03.9 Hypothyroidism, unspecified; E83.42 Hypomagnesemia
CPT/HCPCS: 36415; 36430; 70450-TC; 71045-TC-FY; 80048; 80053; 82436; 82565; 82728; 82962; 83615; 83735; 84133; 84300; 84484; 85025; 85379; 85610; 85730; 86140; 86850; 86900; 86901; 93005; 93010; 94010; 99285-25; C9803; J3480; P9017; U0003

== ENCOUNTER 2022-04-28 16:21 | Inpatient (IN) | payer OTHER ==
[2022-04-28 18:50] LABS: BASO % 1.1 % (0-2.0); EOS % 2.9 % (0-4.5); HEMATOCRIT 39.2 % (35.4-49); HEMOGLOBIN 13.3 GM/dL (11.7-16.9); LYMPH % 33.5 % (8-40); MCH 31.7 pg (25.7-33.7); MCHC 33.9 g/dl (32.0-35.9); MEAN CELL VOLUME 93.8 fl (80-96); MEAN PLT VOLUME 7.9 fl (7.5-11.1); MONO % 7.7 % (3.8-10.2); NEUT % 54.8 % (42.8-82.8); PLATELET COUNT 215 10^3/uL (134-434); RBC 4.19 M/mm3 (4.00-5.60); RDW 15.1 % (11.9-15.9); WHITE BLOOD COUNT 5.7 K/mm3 (4.0-10.0)
[2022-04-28 19:09] LABS: CHLORIDE 107 mmol/L (98-107); SODIUM 141 mmol/L (136-145)
[2022-04-28 19:12] LABS: CALCIUM 8.7 mg/dL (8.5-10.1)
[2022-04-28 19:13] LABS: ALBUMIN 4.2 g/dl (3.4-5.0); ANION GAP 6 MMOL/L (8-16); BLOOD UREA NITROGEN 26.1 mg/dL (7-18); CO2 27 mmol/L (21-32); GLUCOSE,RANDOM 101 mg/dL (74-106); LIPASE 314 U/L (73-393)
[2022-04-28 19:15] LABS: SGOT/AST 24 U/L (15-37)
[2022-04-28 19:16] LABS: CHOLESTEROL 168 mg/dL (50-200); CREATININE 1.5 mg/dL (0.55-1.3); SGPT/ALT 22 U/L (13-61); TRIGLYCERIDES 230 mg/dL (0-150)
[2022-04-28 19:17] LABS: BILIRUBIN,TOTAL 0.8 mg/dL (0.2-1); LDL CHOLESTEROL (ONLY SJRH) 81 mg/dL (5-100); TOT PROT 7.6 g/dl (6.4-8.2)
[2022-04-28 19:18] LABS: ALK PHOS 78 U/L (45-117); HDL CHOLESTEROL 49 mg/dL (40-60); N-TERMINAL BNP 63.5 pg/ml (5-125)
[2022-04-28] MEDS ORDERED: SODIUM CHLORIDE 0.9% 500 ML INFUS.BAG IV ONE (19:38)
[2022-04-28 20:21] LABS: URINE APPEARANCE CLEAR; URINE BILIRUBIN NEGATIVE (NEGATIVE); URINE COLOR YELLOW; URINE GLUCOSE (UA) NEGATIVE (NEGATIVE); URINE KETONE NEGATIVE (NEGATIVE); URINE LEUK ESTERASE NEGATIVE (NEGATIVE); URINE NITRITE NEGATIVE (NEGATIVE); URINE PROTEIN NEGATIVE (NEGATIVE); URINE UROBILINOGEN 0.2 mg/dL (0.2-1.0)
[2022-04-29] MEDS ORDERED: LIDOCAINE HCL 2% JELLY 10 ML CARTRIDGE ONE (00:56)
[2022-04-29 10:12] LABS: BASO % 1.1 % (0-2.0); EOS % 1.1 % (0-4.5); HEMATOCRIT 44.5 % (35.4-49); HEMOGLOBIN 14.9 GM/dL (11.7-16.9); LYMPH % 23.5 % (8-40); MCH 31.5 pg (25.7-33.7); MCHC 33.6 g/dl (32.0-35.9); MEAN CELL VOLUME 93.8 fl (80-96); MONO % 5.8 % (3.8-10.2); NEUT % 68.5 % (42.8-82.8); PLATELET COUNT 240 10^3/uL (134-434); RBC 4.74 M/mm3 (4.00-5.60); WHITE BLOOD COUNT 5.6 K/mm3 (4.0-10.0)
[2022-04-29 10:26] LABS: CHLORIDE 107 mmol/L (98-107); SODIUM 141 mmol/L (136-145)
[2022-04-29 10:27] LABS: CALCIUM 9.2 mg/dL (8.5-10.1)
[2022-04-29 10:28] LABS: ANION GAP 6 MMOL/L (8-16); BLOOD UREA NITROGEN 16.7 mg/dL (7-18); CO2 29 mmol/L (21-32); GLUCOSE,RANDOM 153 mg/dL (74-106)
[2022-04-29] MEDS ORDERED: SODIUM CHLORIDE 1,000 ML IV SCH (10:30)
[2022-04-29 10:31] LABS: CREATININE 1.3 mg/dL (0.55-1.3)
[2022-04-29] MEDS: INSULIN SLIDING SCALE (NOVOLOG) 1 VIAL SQ SCH ×3 (11:06→21:10)
[2022-04-29] MEDS ORDERED: IOHEXOL 180 MG/1 ML ML IT ONE (11:15)
[2022-04-29 11:50] LABS: ERYTHROCYTE SEDIMENTATION RATE 2 mm/hr (0-20)
[2022-04-29 16:56] VITALS: BMI 30.4
[2022-04-30] MEDS: INSULIN SLIDING SCALE (NOVOLOG) 1 VIAL SQ SCH ×4 (06:26→21:46)
[2022-04-30 09:27] LABS: BASO % 0.9 % (0-2.0); EOS % 2.6 % (0-4.5); HEMATOCRIT 41.5 % (35.4-49); LYMPH % 20.8 % (8-40); MCH 31.5 pg (25.7-33.7); MCHC 33.7 g/dl (32.0-35.9); MEAN CELL VOLUME 93.6 fl (80-96); MEAN PLT VOLUME 8.4 fl (7.5-11.1); MONO % 6.2 % (3.8-10.2); NEUT % 69.5 % (42.8-82.8); PLATELET COUNT 225 10^3/uL (134-434); RBC 4.44 M/mm3 (4.00-5.60); RDW 14.8 % (11.9-15.9); WHITE BLOOD COUNT 5.8 K/mm3 (4.0-10.0)
[2022-04-30 09:39] LABS: INR 1.03 (0.83-1.09); PROTHROMBIN TIME (PATIENT) 11.8 SEC (9.7-13.0)
[2022-04-30 09:40] LABS: ACTIVATED PTT 36.1 SECONDS (25.2-36.5)
[2022-04-30 10:12] LABS: ALBUMIN 4.1 g/dl (3.4-5.0); CALCIUM 8.6 mg/dL (8.5-10.1)
[2022-04-30 10:13] LABS: BLOOD UREA NITROGEN 12.3 mg/dL (7-18); MAGNESIUM 2.4 mg/dL (1.8-2.4)
[2022-04-30 10:16] LABS: CREATININE 1.2 mg/dL (0.55-1.3); PHOSPHOROUS 2.1 mg/dL (2.5-4.9)
[2022-04-30 10:20] LABS: BILIRUBIN,TOTAL 1.8 mg/dL (0.2-1); TOT PROT 7.2 g/dl (6.4-8.2)
[2022-04-30] MEDS: SODIUM CHLORIDE 1,000 ML IV SCH (14:00)
[2022-04-30] MEDS ORDERED: ONDANSETRON 4 MG/2 ML VIAL IVPUSH PRN (15:38)
[2022-04-30] MEDS: FAMOTIDINE 20 MG/50 ML IVPB 20 MG/50 ML MG IVPB SCH (21:47)
[2022-05-01] MEDS: LEVOTHYROXINE NA 75 MCG TABLET (FP) PO SCH (06:16)
[2022-05-01] MEDS: INSULIN SLIDING SCALE (NOVOLOG) 1 VIAL SQ SCH ×4 (06:17→21:40)
[2022-05-01 08:09] LABS: BASO % 1.3 % (0-2.0); EOS % 3.3 % (0-4.5); HEMOGLOBIN 13.5 GM/dL (11.7-16.9); LYMPH % 23.8 % (8-40); MCH 31.4 pg (25.7-33.7); MCHC 33.6 g/dl (32.0-35.9); MEAN CELL VOLUME 93.4 fl (80-96); MEAN PLT VOLUME 8.1 fl (7.5-11.1); MONO % 7.9 % (3.8-10.2); NEUT % 63.7 % (42.8-82.8); PLATELET COUNT 202 10^3/uL (134-434); RBC 4.28 M/mm3 (4.00-5.60); RDW 14.8 % (11.9-15.9); WHITE BLOOD COUNT 5.4 K/mm3 (4.0-10.0)
[2022-05-01 08:19] LABS: BLOOD UREA NITROGEN 8.3 mg/dL (7-18); CALCIUM 8.4 mg/dL (8.5-10.1); MAGNESIUM 2.1 mg/dL (1.8-2.4)
[2022-05-01 08:23] LABS: CREATININE 1.1 mg/dL (0.55-1.3)
[2022-05-01] MEDS: FAMOTIDINE 20 MG/50 ML IVPB 20 MG/50 ML MG IVPB SCH ×2 (09:11→21:39)
[2022-05-01] MEDS ORDERED: POTASSIUM CHLORIDE ORAL LIQUID 20 MEQ/15 ML PO ONE (13:24)
[2022-05-01 17:29] LABS: BASO % 1.2 % (0-2.0); EOS % 1.6 % (0-4.5); HEMATOCRIT 42.7 % (35.4-49); HEMOGLOBIN 14.4 GM/dL (11.7-16.9); LYMPH % 31.5 % (8-40); MCH 31.5 pg (25.7-33.7); MCHC 33.7 g/dl (32.0-35.9); MEAN CELL VOLUME 93.5 fl (80-96); MEAN PLT VOLUME 8.5 fl (7.5-11.1); MONO % 5.2 % (3.8-10.2); NEUT % 60.5 % (42.8-82.8); PLATELET COUNT 227 10^3/uL (134-434); RBC 4.56 M/mm3 (4.00-5.60); WHITE BLOOD COUNT 5.6 K/mm3 (4.0-10.0)
[2022-05-01 17:51] LABS: CALCIUM 8.5 mg/dL (8.5-10.1)
[2022-05-01 17:52] LABS: BLOOD UREA NITROGEN 7.6 mg/dL (7-18)
[2022-05-01 17:55] LABS: CREATININE 1.1 mg/dL (0.55-1.3)
[2022-05-01] MEDS: SODIUM CHLORIDE 1,000 ML IV SCH (21:38)
[2022-05-02 06:00] VITALS: BP 138/80; PULSE 10; RESP 20; TEMP 98.2
[2022-05-02] MEDS: INSULIN SLIDING SCALE (NOVOLOG) 1 VIAL SQ SCH ×2 (06:22→12:38)
[2022-05-02] MEDS: LEVOTHYROXINE NA 75 MCG TABLET (FP) PO SCH (06:23)
[2022-05-02 09:05] LABS: BASO % 1.2 % (0-2.0); EOS % 2.8 % (0-4.5); HEMOGLOBIN 14.5 GM/dL (11.7-16.9); LYMPH % 30.3 % (8-40); MCH 31.3 pg (25.7-33.7); MCHC 33.7 g/dl (32.0-35.9); MEAN CELL VOLUME 92.8 fl (80-96); MEAN PLT VOLUME 8.4 fl (7.5-11.1); MONO % 6.6 % (3.8-10.2); NEUT % 59.1 % (42.8-82.8); PLATELET COUNT 231 10^3/uL (134-434); RBC 4.63 M/mm3 (4.00-5.60); WHITE BLOOD COUNT 5.3 K/mm3 (4.0-10.0)
[2022-05-02 09:28] LABS: CALCIUM 8.8 mg/dL (8.5-10.1)
[2022-05-02 09:29] LABS: BLOOD UREA NITROGEN 8.7 mg/dL (7-18)
[2022-05-02 09:32] LABS: CREATININE 1.2 mg/dL (0.55-1.3)
[2022-05-02] MEDS: FAMOTIDINE 20 MG/50 ML IVPB 20 MG/50 ML MG IVPB SCH (09:49)
== END 2022-05-02 11:20 | disposition home or self-care (01) | DRG 390 ==
LOC: JER 16:21 → JERBED 23:05 → J8W 04-29 14:11
PROVIDERS: ADMIT Internal Medicine; ATTEND Internal Medicine
PROC: 0D9670Z Drainage of Stomach with Drainage Device, Via Natural or Artificial Opening (ICD-10-PCS; principal; 2022-04-29)
DX: K56.600 Partial intestinal obstruction, unspecified as to cause (principal); E11.9 Type 2 diabetes mellitus without complications; I10 Essential (primary) hypertension; Z86.16 Personal history of COVID-19; E78.5 Hyperlipidemia, unspecified; N28.1 Cyst of kidney, acquired; K76.89 Other specified diseases of liver
CPT/HCPCS: 36415; 71045-TC-FY; 71046-TC-FY; 74019-TC-FY; 74177-TC; 80048; 80053; 80061; 81003; 82962; 83605; 83690; 83735; 83880; 84100; 84439; 84443; 84484; 85025; 85610; 85651; 85730; 86140; 93005; 93010; 99285-25; C9803-CS; U0003; U0005

== ENCOUNTER 2022-09-02 14:16 | Emergency (ER) | payer OTHER ==
[2022-09-02 14:29] VITALS: BP 139/74; PULSE 91; RESP 18; TEMP 98.1; BMI 30.4
[2022-09-02] MEDS ORDERED: ONDANSETRON 4 MG/2 ML VIAL IVPUSH ONE (16:10)
[2022-09-02] MEDS ORDERED: ONDANSETRON 4 MG/2 ML VIAL ONE (16:19)
[2022-09-02 17:24] LABS: BASO % 1.3 % (0-2.0); EOS % 3.1 % (0-4.5); HEMATOCRIT 42.5 % (35.4-49); HEMOGLOBIN 13.8 GM/dL (11.7-16.9); LYMPH % 39.8 % (8-40); MCH 30.6 pg (25.7-33.7); MCHC 32.5 g/dl (32.0-35.9); MEAN CELL VOLUME 94.1 fl (80-96); MEAN PLT VOLUME 8.1 fl (7.5-11.1); MONO % 8.1 % (3.8-10.2); NEUT % 47.7 % (42.8-82.8); PLATELET COUNT 234 10^3/uL (134-434); RBC 4.52 M/mm3 (4.00-5.60); RDW 14.5 % (11.9-15.9); WHITE BLOOD COUNT 4.8 K/mm3 (4.0-10.0)
[2022-09-02 17:34] LABS: INR 1.02 (0.83-1.09); PROTHROMBIN TIME (PATIENT) 11.7 SEC (9.7-13.0)
[2022-09-02 17:36] LABS: ACTIVATED PTT 31.8 SECONDS (25.2-36.5)
[2022-09-02 17:46] LABS: CHLORIDE 107 mmol/L (98-107); SODIUM 142 mmol/L (136-145)
[2022-09-02 17:48] LABS: ALBUMIN 4.2 g/dl (3.4-5.0); CALCIUM 8.4 mg/dL (8.5-10.1); LIPASE 158 U/L (73-393)
[2022-09-02 17:49] LABS: ANION GAP 10 MMOL/L (8-16); BLOOD UREA NITROGEN 20.6 mg/dL (7-18); CO2 24 mmol/L (21-32); GLUCOSE,RANDOM 114 mg/dL (74-106)
[2022-09-02 17:51] LABS: SGPT/ALT 37 U/L (13-61)
[2022-09-02 17:52] LABS: CREATININE 1.2 mg/dL (0.55-1.3); SGOT/AST 38 U/L (15-37)
[2022-09-02 17:53] LABS: BILIRUBIN,TOTAL 1.2 mg/dL (0.2-1); TOT PROT 7.6 g/dl (6.4-8.2)
[2022-09-02 17:54] LABS: ALK PHOS 92 U/L (45-117)
== END 2022-09-02 22:22 | disposition home or self-care (01) ==
LOC: JER 14:16
PROC: 3E033GC Introduction of Other Therapeutic Substance into Peripheral Vein, Percutaneous Approach (ICD-10-PCS; principal; 2022-09-02)
DX: R11.10 Vomiting, unspecified (principal)
CPT/HCPCS: 0241U-QW; 36415; 74177-TC; 80053; 83690; 84484; 85025; 85610; 85730; 93005; 93010; 99285-25

== ENCOUNTER 2024-09-10 04:31 | Day surgery (SDC) | payer OTHER ==
[2024-09-05 12:41] VITALS: BMI 30.7
[2024-09-10 09:41] VITALS: TEMP 98.1
[2024-09-10 10:11] VITALS: RESP 16
[2024-09-10 10:13] VITALS: BP 136/85; PULSE 73
== END 2024-09-10 10:48 | disposition home or self-care (01) ==
LOC: JASU-ENDO 04:31
PROVIDERS: ATTEND Internal Medicine Gastroenterology
PROC: 0DBM8ZX Excision of Descending Colon, Via Natural or Artificial Opening Endoscopic, Diagnostic (ICD-10-PCS; 2024-09-10)
PROC: 0DBH8ZX Excision of Cecum, Via Natural or Artificial Opening Endoscopic, Diagnostic (ICD-10-PCS; principal; 2024-09-10 08:45)
DX: Z12.11 Encounter for screening for malignant neoplasm of colon (principal); D12.4 Benign neoplasm of descending colon; D12.0 Benign neoplasm of cecum; K57.30 Diverticulosis of large intestine without perforation or abscess without bleeding; K64.8 Other hemorrhoids
CPT/HCPCS: 82962; 88305-TC